=== PATIENT | male | born 1950 | race Caucasian/White ===

== ENCOUNTER 2017-05-23 07:34 | Day surgery (SDC) | payer OTHER ==
[2017-05-22 12:29] VITALS: BMI 34.8
[~2017-05-23 07:34] MED LIST: ACETAMINOPHEN 325 MG TABLET (FP) PO PRN; FLURBIPROFEN 0.03% OPHTH SOLN 2.5 ML BOTTLE OP SCH
[2017-05-23] MEDS ORDERED: CYCLOPENTOLATE HCL 1% OPHTH SOLN 2 ML BOTTLE ONE (07:56)
[2017-05-23] MEDS ORDERED: PHENYLEPHRINE 2.5% OPHTH SOLN 15 ML BOTTLE ONE (07:56)
[2017-05-23] MEDS ORDERED: CIPROFLOXACIN 0.3% EYE DROPS 5 ML BOTTLE ONE (07:56)
[2017-05-23] MEDS ORDERED: TROPICAMIDE 1% OPHTH SOLN 15 ML BOTTLE ONE (07:56)
[2017-05-23] MEDS: CIPROFLOXACIN HCL 0.3% OPHTH 2.5ML BOTTLE OP SCH ×3 (08:00→08:10)
[2017-05-23] MEDS: TROPICAMIDE 1% OPHTH SOLN 15 ML BOTTLE OP SCH ×3 (08:00→08:10)
[2017-05-23] MEDS: PHENYLEPHRINE 2.5% OPHTH SOLN 15 ML BOTTLE OP SCH ×3 (08:00→08:10)
[2017-05-23] MEDS: CYCLOPENTOLATE HCL 1% OPHTH SOLN 2 ML BOTTLE OP SCH ×3 (08:00→08:10)
[2017-05-23] MEDS ORDERED: LIDOCAINE HCL 2% JELLY (5 ML/TUBE) TP ONE (08:55)
[2017-05-23] MEDS ORDERED: MIDAZOLAM HCL 2 MG/2 ML SINGLE DOSE VIAL ONE (08:57)
[2017-05-23] MEDS ORDERED: POVIDONE-IODINE 5% OPHTHALMIC PREP 30 ML SOLUTION OS ONE (09:07)
[2017-05-23] MEDS ORDERED: LIDOCAINE HCL 1% PRESERVATIVE FREE - 30ML VIAL IO ONE (09:15)
[2017-05-23] MEDS ORDERED: BSS (NA/CA/MG/K) BALANCED SALT SOLUTION OPHTH SOLN 15 ML BOTTLE OS ONE (09:15)
[2017-05-23] MEDS ORDERED: CHONDROITIN SU A/HYALUR SOD 1 KIT IO ONE (09:15)
[2017-05-23] MEDS ORDERED: EPINEPHrine/PF 1 MG/1 ML (1:1,000) AMPULE IO ONE (09:21)
--- NOTE | 2017-05-23 10:28 | SPEC ---
DATE OF OPERATION: DATE OF DICTATION: 05/23/2017 OPERATION: Phacoemulsification with posterior chamber intraocular lens implantation, left eye. Lens used [id number], 20.0 diopter power, serial no. [id number]. PREOPERATIVE DIAGNOSIS: Cataract, left eye. POSTOPERATIVE DIAGNOSIS: Cataract, left eye. SURGEON: Nilam Sargent M.D. ANESTHESIA: Topical MAC. COMPLICATIONS: None. PROCEDURE: The patient was brought to the operating room and correctly identified along with the operative site and the correct intraocular lens power. The patient was then prepped and draped in the usual sterile fashion including 5% Betadine solution in the conjunctival sac and an eyelid drape. An eyelid speculum was then placed in the eye. A paracentesis port was created and approximately 0.5 mL of preservative-free lidocaine was then injected into the eye. Viscoelastic was then injected to inflate the anterior chamber. A temporal clear corneal wound was created. A continuous circular capsulorrhexis was performed. The nucleus was then hydrodissected with BSS and removed with phacoemulsification. The remaining cortical material was irrigated and aspirated. Viscoelastic was injected to inflate the capsular bag and the intraocular lens was then implanted into the capsular bag. The remaining Viscoelastic was irrigated and aspirated from the eye. The IOL was noted to be well centered and completely covered by the anterior capsulorrhexis. Topical vancomycin was placed and the eye patched and shielded. All wounds were tested and found to be watertight. No suture was placed. The eye was then shielded. The patient was then discharged from the operating room in stable condition. NILAM SARGENT M.D. [id number]
[2017-05-23 10:34] VITALS: BP 101/56; PULSE 77; TEMP 98.6
== END 2017-05-23 11:00 | disposition home or self-care (01) ==
LOC: JASU-SURG 07:34
PROVIDERS: ATTEND Ophthalmology
PROC: 08RK3JZ Replacement of Left Lens with Synthetic Substitute, Percutaneous Approach (ICD-10-PCS; principal; 2017-05-23 09:00)
DX: H26.9 Unspecified cataract (principal)

== ENCOUNTER 2017-06-06 07:57 | Day surgery (SDC) | payer OTHER ==
[2017-06-01 17:32] VITALS: BMI 34.8
[~2017-06-06 07:57] MED LIST changes: -FLURBIPROFEN 0.03% OPHTH SOLN 2.5 ML BOTTLE OP SCH
[2017-06-06] MEDS ORDERED: FLURBIPROFEN 0.03% OPHTH SOLN 2.5 ML BOTTLE OP SCH (08:00)
[2017-06-06] MEDS ORDERED: CIPROFLOXACIN 0.3% EYE DROPS 5 ML BOTTLE ONE (08:09)
[2017-06-06] MEDS: CYCLOPENTOLATE HCL 1% OPHTH SOLN 2 ML BOTTLE OP SCH ×3 (08:10→08:30)
[2017-06-06] MEDS: TROPICAMIDE 1% OPHTH SOLN 15 ML BOTTLE OP SCH ×3 (08:10→08:30)
[2017-06-06] MEDS: PHENYLEPHRINE 2.5% OPHTH SOLN 15 ML BOTTLE OP SCH ×3 (08:10→08:30)
[2017-06-06] MEDS: CIPROFLOXACIN HCL 0.3% OPHTH 2.5ML BOTTLE OP SCH ×3 (08:10→08:30)
[2017-06-06 08:29] VITALS: TEMP 98
[2017-06-06] MEDS ORDERED: BUPIVACAINE HCL/PF 0.75% 10 ML VIAL RB ONE (09:13)
[2017-06-06] MEDS ORDERED: LIDOCAINE HCL/PF 2% SDV 5ML VIAL INF ONE (09:13)
[2017-06-06] MEDS ORDERED: POVIDONE-IODINE 5% OPHTHALMIC PREP 30 ML SOLUTION OD ONE (09:14)
[2017-06-06] MEDS ORDERED: BSS (NA/CA/MG/K) BALANCED SALT SOLUTION OPHTH SOLN 15 ML BOTTLE OD ONE (09:23)
[2017-06-06] MEDS ORDERED: LIDOCAINE HCL 1% PRESERVATIVE FREE - 30ML VIAL IO ONE (09:23)
[2017-06-06] MEDS ORDERED: CHONDROITIN SU A/HYALUR SOD 1 KIT IO ONE (09:23)
[2017-06-06] MEDS ORDERED: EPINEPHrine/PF 1 MG/1 ML (1:1,000) AMPULE IO ONE (09:26)
[2017-06-06 10:50] VITALS: BP 102/60; PULSE 78
--- NOTE | 2017-06-06 10:53 | SPEC ---
DATE OF OPERATION: OPERATION: Phacoemulsification of right cataract with posterior chamber intraocular lens implantation. Lens used [id number], 20.5 Diopter, Serial No. [id number]. PREOPERATIVE DIAGNOSIS: Cataract right eye. POSTOPERATIVE DIAGNOSIS: Cataract right eye. SURGEON: Matteo Teixeira M.D. ANESTHESIA: Peribulbar/Modified [place]/MAC. COMPLICATIONS: None. PROCEDURE: The patient was brought to the operating room and correctly identified along with the operative site and a correct intraocular lens ulloa. The patient was then given a peribulbar block under sedation with 5 mL of a 1:1 mixture of 2% Lidocaine and 0.5% Bupivacaine. Two to 3 mL of the same mixture was given as a modified [place]int block. The eye was then prepped and draped in the usual sterile fashion including 5% Betadine solution in the conjunctival sac and an eyelid drape. An eyelid speculum was then placed into the eye. A paracentesis port was created. Viscoelastic was injected to inflate the anterior chamber. A temporal clear corneal wound was created. A continuous circular capsulorrhexis was performed. The nucleus was then hydro-dissected and removed phacoemulsification via the [id number] approach. The remaining cortical material was irrigated and aspirated from the eye. Viscoelastic was injected to inflate the capsular bag. The lens was injected into the capsular bag. Viscoelastic was then irrigated and aspirated from the eye. The intraocular lens was noted to be well centered and covered by the anterior capsular border. All wounds were found to be watertight. Topical Vancomycin was given. The eye patch and shield were placed. The patient was discharged from the operating room in stable condition. Geri BARAKAT/[id number]
== END 2017-06-06 10:50 | disposition home or self-care (01) ==
LOC: JASU-SURG 07:57
PROVIDERS: ATTEND Ophthalmology
PROC: 08RK3JZ Replacement of Left Lens with Synthetic Substitute, Percutaneous Approach (ICD-10-PCS; principal; 2017-06-06 09:00)
DX: H26.9 Unspecified cataract (principal)

== ENCOUNTER 2020-02-16 15:31 | Inpatient (IN) | payer OTHER ==
--- NOTE | 2020-02-16 16:41 | PDOC ---
History of Present Illness - General Chief Complaint: Lightheaded Stated Complaint: FALL Time Seen by Provider: 02/16/20 15:43 History Source: Patient - History of Present Illness Initial Comments: 02/16/20 17:01 69M w/hx HTN, HLD, prior CVA w/residual R weakness p/w fall at home. He reports "slipping and falling" and landing onto his R face. He does not recall the events before or after the fall. He reports calling himself a cab to bring him to the ER, but does not remember how he stood himself back up after the fall. History limited by mental status. He reports living by himself. He is unsure if he became lightheaded before the fall. He endorses pain on his R face, denies any new numbness, tingling, chest pain, sob. NIH Stroke Scale - Last Known Well Date/Time & Onset Date Last Known Well: 02/15/20 Time Last Known Well: 12:00 - Initial Evaluation Level of consciousness: Not alert, but arousable with minimal stimulation Ask patient the month and their age: Answers one correctly Ask patient to open & close eyes; make fist and let go: Obeys both correctly Best gaze (horizontal eye movement): Normal Visual field testing: No visual field loss Facial paresis (Show teeth/raise eyebrows/close eyes tight): Minor paralysis (flattened nasolabial fold, asymmetry on smiling) Motor Function: Left Arm: Normal Motor Function: Right Arm: Normal (extends arm 90 (or 45) degrees for 10 secon ds without drift Motor Function: Left Leg: Normal (extends leg 30 degrees for 5 seconds without drift) Motor Function: Right Leg: Drift Limb Ataxia: No ataxia Sensory(Use pinprick test arms,legs,trunk,face/side to side): Normal Best language (Describe picture, name items, read sentences): No Aphasia Dysarthria (read several words): Normal articulation Extinction and Inattention: Inattention or extinction bilaterally to one of the sensory modalities - Total Score NIH Stroke Scale Score: 5 Past History - Medical History Allergies/Adverse Reactions: Allergies Allergy/AdvReac Type Severity Reaction Status Date / Time No Known Allergies Allergy Verified 06/06/17 08:19 Home Medications: Ambulatory Orders Ascorbate Calcium [Vitamin C] 500 mg PO DAILY 05/22/17 Aspirin [ASA -] 81 mg PO DAILY 05/22/17 Atorvastatin Ca [Lipitor] 40 mg PO HS 05/22/17 Ergocalciferol [Vitamin D2] 50,000 unit PO WEEKLY 05/22/17 Escitalopram Oxalate [Lexapro -] 20 mg PO DAILY 05/22/17 Folic Acid 0.4 mg PO DAILY 05/22/17 Gabapentin 300 mg PO TID 05/22/17 Insulin Degludec [Tresiba Flextouch U-100] 60 unit SQ DAILY 05/22/17 Lisinopril [Prinivil] 20 mg PO DAILY 05/22/17 Pantoprazole Sodium [Protonix -] 20 mg PO DAILY 05/22/17 Sitagliptin Phosphate [Januvia] 100 mg PO DAILY 05/22/17 traZODone HCL [Trazodone HCl] 50 mg PO HS 05/22/17 Anemia: No Asthma: Yes Cancer: No Cardiac Disorders: No CVA: No COPD: No CHF: No Dementia: No Diabetes: Yes GI Disorders: No Disorders: No HTN: Yes Hypercholesterolemia: Yes Liver Disease: No Seizures: No Thyroid Disease: No Other medical history: vertigo - Surgical History Orthopedic Surgery: Yes (RTK REPLACEMENT 11/2016) - Psycho-Social/Smoking History Smoking History: Former smoker Have you smoked in the past 12 months: No Information on smoking cessation initiated: No - Substance Abuse Hx (Audit-C & DAST Scrn) How often the patient has a drink containing alcohol: Never Score: In Men: 4 or > Positive; In Women: 3 or > Positive: 0 Screen Result (Pos requires Nsg. Audit-10AR): Negative In the last yr the pt used illegal drug/Rx for NonMed reason: No Score: Yes response is considered Positive: 0 Screen Result (Positive result requires Nsg. DAST-10): Negative Review of Systems - Review of Systems Able to Perform ROS?: Yes (Limited by mental status) Comments:: 02/16/20 18:02 GENERAL/CONSTITUTIONAL: Weakness. No fever or chills. HEAD, EYES, EARS, NOSE AND THROAT: No change in vision. No ear pain or discharge. No sore throat. CARDIOVASCULAR: No chest pain or shortness of breath RESPIRATORY: No cough, wheezing, or hemoptysis. GASTROINTESTINAL: No nausea, vomiting, diarrhea or constipation. GENITOURINARY: No dysuria, frequency, or change in urination. MUSCULOSKELETAL: Neck pain. No other joint or muscle swelling or pain. No back pain. SKIN: No rash NEUROLOGIC: Loss of consciousness. No headache, vertigo, or change in strength/sensation. ENDOCRINE: No increased thirst. No abnormal weight change HEMATOLOGIC/LYMPHATIC: No anemia, easy bleeding, or history of blood clots. ALLERGIC/IMMUNOLOGIC: No hives or skin allergy. *Physical Exam - Vital Signs Last Vital Signs Temp Pulse Resp BP Pulse Ox 99.5 F 65 18 147/49 L 98 02/16/20 15:39 02/16/20 15:39 02/16/20 15:39 02/16/20 15:39 02/16/20 15:39 - Physical Exam 02/16/20 17:12 GENERAL: Oriented to location. Disoriented to time, person, situation. Awake, in no acute distress HEAD: No signs of trauma, normocephalic, atraumatic EYES: PERRLA, EOMI, sclera anicteric, conjunctiva clear ENT: Auricles normal inspection, hearing grossly normal, nares patent, oropharynx clear without exudates. Moist mucosa NECK: Midline cervical, thoracic, and lumbar tenderness. Normal ROM, supple, no lymphadenopathy, JVD, or masses LUNGS: No distress, speaks full sentences, clear to auscultation bilaterally HEART: Regular rate and rhythm, normal S1 and S2, no murmurs, rubs or gallops, peripheral pulses normal and equal bilaterally. ABDOMEN: Soft, nontender, normoactive bowel sounds. No guarding, no rebound. No masses EXTREMITIES : Normal inspection, Normal range of motion, no edema. No clubbing or cyanosis NEUROLOGICAL: 4/5 strength in RUE, RLE. 5/5 strength in LLE, LUE. Diminished attentiveness to R side, with delayed R sided finger to nose. Cranial nerves II through XII grossly intact. Slow speech. SKIN: Warm, Dry, normal turgor, no rashes or lesions noted ED Treatment Course - LABORATORY CBC & Chemistry Diagram: 02/16/20 17:05 02/16/20 16:11 Medical Decision Making - Medical Decision Making 02/16/20 17:16 69M w/hx HTN, HLD p/w unwitnessed fall at home with syncope, disoriented with unclear baseline, and R sided weakness. Ddx CVA, recrudescence syndrome, arrhythmia, electrolyte derangement. Plan: CT head w/o contrast CT cervical, thoracic, lumbar spines w/o contrast Cervical collar placement given midline spinal tenderness CBC CMP Cardiac profile PT/INR, APTT Type and Screen EKG CXR Dispo: Admit 02/16/20 18:08 CT Cervical/thoracic/lumbar spine negative for acute fracture or other acute process. Lung field notable for small effusion vs consolidation. Plan for cef azithro for pneumonia coverage Discharge - Discharge Information Problems reviewed: Yes Clinical Impression/Diagnosis: Syncope Qualifiers: Syncope type: unspecified Qualified Code(s): R55 - Syncope and collapse Condition: Stable - Admission Yes - Follow up/Referral Referrals: Kati Colvin [Primary Care Provider] - - Patient Discharge Instructions - Post Discharge Activity
[2020-02-16 16:57] LABS: INR 0.89 (0.83-1.09); PROTHROMBIN TIME (PATIENT) 10.5 SEC (9.7-13.0)
[2020-02-16 17:00] LABS: ACTIVATED PTT 22.2 SECONDS (25.2-36.5)
[2020-02-16 17:26] LABS: BASO % 1.1 % (0-2.0); EOS % 1.9 % (0-4.5); HEMATOCRIT 36.9 % (35.4-49); HEMOGLOBIN 11.7 GM/dL (11.7-16.9); LYMPH % 18.1 % (8-40); MCH 24.3 pg (25.7-33.7); MCHC 31.7 g/dl (32.0-35.9); MEAN CELL VOLUME 76.6 fl (80-96); MEAN PLT VOLUME 10.6 fl (7.5-11.1); MONO % 6.3 % (3.8-10.2); NEUT % 72.6 % (42.8-82.8); PLATELET COUNT 208 K/MM3 (134-434); RBC 4.82 M/mm3 (4.00-5.60); RDW 18.2 % (11.9-15.9); WHITE BLOOD COUNT 8.2 K/mm3 (4.0-10.0)
[2020-02-16 17:27] LABS: ALBUMIN 3.1 g/dl (3.4-5.0); BILIRUBIN,TOTAL 0.4 mg/dL (0.2-1); BLOOD UREA NITROGEN 17.6 mg/dL (7-18); CALCIUM 8.7 mg/dL (8.5-10.1); CREATININE 1.2 mg/dL (0.55-1.3); POTASSIUM 4.5 mmol/L (3.5-5.1); TOT PROT 6.8 g/dl (6.4-8.2)
--- NOTE | 2020-02-16 17:29 | PDOC ---
Attending Attestation - Resident Resident Name: Tyron French - ED Attending Attestation I have performed the following: I have examined & evaluated the patient, The case was reviewed & discussed with the resident, I agree w/resident's findings & plan, Exceptions are as noted - HPI HPI: 02/16/20 17:25 69 M with h/o HTN, HLD, CVA presenting with fall. Pt states that he slipped and fell, landing onto his R face. Does not recall if he lost consciousness. Denies CP/SOB/palpitations. Pt is AnOx2 in ED, unable to provide thorough history. - Physicial Exam PE: 02/16/20 17:28 See resident exam - Medical Decision Making 02/16/20 17:28 69 M with AMS and fall/syncope, found to be ataxic on exam. Will evaluate for CVA. Will attempt to obtain collateral on pt's baseline mental status. - Labs - CT head - CXR, UA Discharge - Discharge Information Problems reviewed: Yes Clinical Impression/Diagnosis: Syncope Qualifiers: Syncope type: unspecified Qualified Code(s): R55 - Syncope and collapse Condition: Stable - Follow up/Referral - Patient Discharge Instructions - Post Discharge Activity
[2020-02-16] MEDS ORDERED: CEFTRIAXONE 1,000 MG in DEXTROSE 5%-WATER - 50 ML IVPB ONE (18:09)
[2020-02-16] MEDS ORDERED: AZITHROMYCIN IVPB 500 MG in DEXTROSE 5%-WATER - 250 ML IVPB ONE (18:09)
[2020-02-16] MEDS ORDERED: AZITHROMYCIN IVPB 500 MG/250 ML BAG IVPB ONE (18:42)
[2020-02-16] MEDS ORDERED: CEFTRIAXONE 1 GM/50 ML BAG ONE (18:42)
[2020-02-17 01:17] VITALS: BMI 27.6
[2020-02-17 01:58] LABS: EPI CELLS 10 /uL (0-25.1); HYALINE CASTS 4 /uL (0-3.1); URINE APPEARANCE CLEAR; URINE BACTERIA 48 /uL (0-1359); URINE BILIRUBIN NEGATIVE (NEGATIVE); URINE COLOR YELLOW; URINE GLUCOSE (UA) 3+ (NEGATIVE); URINE KETONE NEGATIVE (NEGATIVE); URINE LEUK ESTERASE NEGATIVE (NEGATIVE); URINE NITRITE NEGATIVE (NEGATIVE); URINE PROTEIN 3+ (NEGATIVE); URINE RBC 9 /uL (0-23.9); URINE UROBILINOGEN 0.2 mg/dL (0.2-1.0)
[2020-02-17 02:12] LABS: URINE WBC 60 /uL (0-25.8)
--- NOTE | 2020-02-17 05:38 | HP ---
CHIEF COMPLAINT: s/p Fall, Presyncope PCP: Dr Colvin HISTORY OF PRESENT ILLNESS: 69M w/hx HTN, HLD, prior CVA w/residual R weakness p/w fall at home. Per ED records: He reports "slipping and falling" and landing onto his R face. He does not recall the events before or after the fall. He reports calling himself a cab to bring him to the ER, but does not remember how he stood himself back up after the fall. History limited by mental status. He reports living by himself. He is unsure if he became lightheaded before the fall. He endorses pain on his R face, denies any new numbness, tingling, chest pain, sob. ER course was notable for: (1) Head CT-neg acute intracranial pathology. small chronic right frontoparietal periventricular infarct punctate chronic right basal ganglia infarct (2) C-Spine CT- neg fx (3) Thoracic CT- neg fx (4) Lumbar CT- neg fx (5) Troponin 0.02 (6) Glucose 294 Recent Travel: unknown PAST MEDICAL HISTORY: See HPI PAST SURGICAL HISTORY: Right Total Knee Replacement 11/2016 Social History: Smoking: Former (per medical record) Alcohol: Unknown Drugs: Unknown Allergies No Known Allergies Allergy (Verified 06/06/17 08:19) HOME MEDICATIONS: Home Medications Medication Instructions Recorded Ascorbate Calcium [Vitamin C] 500 mg PO DAILY 05/22/17 Aspirin [ASA -] 81 mg PO DAILY 05/22/17 Atorvastatin Ca [Lipitor] 40 mg PO HS 05/22/17 Ergocalciferol [Vitamin D2] 50,000 unit PO WEEKLY 05/22/17 Escitalopram Oxalate [Lexapro -] 20 mg PO DAILY 05/22/17 Folic Acid 0.4 mg PO DAILY 05/22/17 Gabapentin 300 mg PO TID 05/22/17 Insulin Degludec [Tresiba 60 unit SQ DAILY 05/22/17 Flextouch U-100] Lisinopril [Prinivil] 20 mg PO DAILY 05/22/17 Pantoprazole Sodium [Protonix -] 20 mg PO DAILY 05/22/17 Sitagliptin Phosphate [Januvia] 100 mg PO DAILY 05/22/17 traZODone HCL [Trazodone HCl] 50 mg PO HS 05/22/17 REVIEW OF SYSTEMS Unable to Obtain- Clinical Condition CONSTITUTIONAL: Absent: fever, chills, diaphoresis, generalized weakness, malaise, loss of appetite, weight change HEENT: Absent: rhinorrhea, nasal congestion, throat pain, throat swelling, difficulty swallowing, mouth swelling, ear pain, eye pain, visual changes CARDIOVASCULAR: Absent: chest pain, syncope, palpitations, irregular heart rate, lightheadedness, peripheral edema RESPIRATORY: Absent: cough, shortness of breath, dyspnea with exertion, orthopnea, wheezing, stridor, hemoptysis GASTROINTESTINAL: Absent: abdominal pain, abdominal distension, nausea, vomiting, diarrhea, constipation, melena, hematochezia GENITOURINARY: Absent: dysuria, frequency, urgency, hesitancy, hematuria, flank pain, genital pain MUSCULOSKELETAL: Absent: myalgia, arthralgia, joint swelling, back pain, neck pain SKIN: Absent: rash, itching, pallor HEMATOLOGIC/IMMUNOLOGIC: Absent: easy bleeding, easy bruising, lymphadenopathy, frequent infections ENDOCRINE: Absent: unexplained weight gain, unexplained weight loss, heat intolerance, cold intolerance NEUROLOGIC: Absent: headache, focal weakness or paresthesias, dizziness, unsteady gait, seizure, mental status changes, bladder or bowel incontinence PSYCHIATRIC: Absent: anxiety, depression, suicidal or homicidal ideation, hallucinations. PHYSICAL EXAMINATION Vital Signs - 24 hr 02/16/20 02/16/20 02/16/20 15:39 16:00 19:35 Temperature 99.5 F 98.1 F 99.4 F Pulse Rate 65 Pulse Rate [ 95 H Right Radial] Respiratory 18 18 18 Rate Blood Pressure 147/49 L Blood Pressure 142/82 125/78 [Left Arm] O2 Sat by Pulse 98 97 98 Oximetry (%) 02/16/20 02/16/20 02/16/20 23:01 23:30 23:35 Temperature 99.9 F H Pulse Rate 85 85 Pulse Rate [ 96 H Right Radial] Respiratory 18 20 20 Rate Blood Pressure 129/72 129/72 Blood Pressure 122/82 [Left Arm] O2 Sat by Pulse 98 Oximetry (%) 02/17/20 01:13 Temperature 98.9 F Pulse Rate 81 Pulse Rate [ Right Radial] Respiratory 20 Rate Blood Pressure 127/73 Blood Pressure [Left Arm] O2 Sat by Pulse Oximetry (%) GENERAL: Awake, and confused, in no acute distress. HEAD: Normal with no signs of trauma. EYES: Pupils equal, round and reactive to light, sclera anicteric, conjunctiva clear. No lid lag. unable to assess extraocular movements EARS, NOSE, THROAT: Ears normal, nares patent, oropharynx clear without exudates. Moist mucous membranes. NECK: Normal range of motion, supple without lymphadenopathy, JVD, or masses. LUNGS: Breath sounds equal, clear to auscultation bilaterally. No wheezes, and no crackles. No accessory muscle use. HEART: Regular rate and rhythm, normal S1 and S2 without murmur, rub or gallop. ABDOMEN: Soft, nontender, not distended, normoactive bowel sounds, no guarding, no rebound, no masses. No hepatomegaly or splenomegaly. MUSCULOSKELETAL: Normal range of motion at all joints. No bony deformities or tenderness. No CVA tenderness. UPPER EXTREMITIES: 2+ pulses, warm, well-perfused. No cyanosis. No clubbing. No peripheral edema. LOWER EXTREMITIES: 2+ pulses, warm, well-perfused. No calf tenderness. No peripheral edema. NEUROLOGICAL: Cranial nerves II-XII intact. Normal speech. Gait not observed. PSYCHIATRIC: Cooperative. Limited eye contact. Appropriate mood with flat affect. SKIN: Warm, dry, normal turgor, no rashes or lesions noted, normal capillary refill. Laboratory Results - last 24 hr 02/16/20 02/16/20 02/16/20 16:11 16:11 16:11 WBC Cancelled Corrected WBC (auto) Cancelled RBC Cancelled Hgb Cancelled Hct Cancelled MCV Cancelled MCH Cancelled MCHC Cancelled RDW Cancelled Plt Count Cancelled MPV Cancelled Absolute Neuts (auto) Cancelled Neutrophils % Cancelled Lymphocytes % Cancelled Monocytes % Cancelled Eosinophils % Cancelled Basophils % Cancelled Nucleated RBC % Cancelled Platelet Estimate Cancelled Platelet Comment Cancelled PT with INR 10.50 INR 0.89 PTT (Actin FS) 22.2 L Sodium 136 Potassium 4.5 Chloride 105 Carbon Dioxide 19 L Anion Gap 12 BUN 17.6 Creatinine 1.2 Est GFR (CKD-EPI)AfAm 70.58 Est GFR (CKD-EPI)NonAf 60.90 Random Glucose 294 H Calcium 8.7 Total Bilirubin 0.4 AST 29 ALT 22 Alkaline Phosphatase 150 H Creatine Kinase 92 Troponin I 0.02 Total Protein 6.8 Albumin 3.1 L Urine Color Urine Appearance Urine pH Ur Specific [place] Urine Protein Urine Glucose (UA) Urine Ketones Urine Blood Urine Nitrite Urine Bilirubin Urine Urobilinogen Ur Leukocyte Esterase Urine WBC (Auto) Urine RBC (Auto) Urine Casts (Auto) U Epithel Cells (Auto) Urine Bacteria (Auto) Blood Type Antibody Screen 02/16/20 02/16/20 02/16/20 16:11 17:05 23:55 WBC 8.2 Corrected WBC (auto) RBC 4.82 Hgb 11.7 Hct 36.9 MCV 76.6 L MCH 24.3 L D MCHC 31.7 L RDW 18.2 H Plt Count 208 MPV 10.6 Absolute Neuts (auto) 5.9 Neutrophils % 72.6 Lymphocytes % 18.1 Monocytes % 6.3 Eosinophils % 1.9 Basophils % 1.1 Nucleated RBC % 0 Platelet Estimate Platelet Comment PT with INR INR PTT (Actin FS) Sodium Potassium Chloride Carbon Dioxide Anion Gap BUN Creatinine Est GFR (CKD-EPI)AfAm Est GFR (CKD-EPI)NonAf Random Glucose Calcium Total Bilirubin AST ALT Alkaline Phosphatase Creatine Kinase 49 Troponin I 0.03 Total Protein Albumin Urine Color Urine Appearance Urine pH Ur Specific [place] Urine Protein Urine Glucose (UA) Urine Ketones Urine Blood Urine Nitrite Urine Bilirubin Urine Urobilinogen Ur Leukocyte Esterase Urine WBC (Auto) Urine RBC (Auto) Urine Casts (Auto) U Epithel Cells (Auto) Urine Bacteria (Auto) Blood Type O POSITIVE Antibody Screen Negative 02/17/20 01:42 WBC Corrected WBC (auto) RBC Hgb Hct MCV MCH MCHC RDW Plt Count MPV Absolute Neuts (auto) Neutrophils % Lymphocytes % Monocytes % Eosinophils % Basophils % Nucleated RBC % Platelet Estimate Platelet Comment PT with INR INR PTT (Actin FS) Sodium Potassium Chloride Carbon Dioxide Anion Gap BUN Creatinine Est GFR (CKD-EPI)AfAm Est GFR (CKD-EPI)NonAf Random Glucose Calcium Total Bilirubin AST ALT Alkaline Phosphatase Creatine Kinase Troponin I Total Protein Albumin Urine Color Yellow Urine Appearance Clear Urine pH 5.0 Ur Specific [place] 1.028 Urine Protein 3+ H Urine Glucose (UA) 3+ H Urine Ketones Negative Urine Blood Negative Urine Nitrite Negative Urine Bilirubin Negative Urine Urobilinogen 0.2 Ur Leukocyte Esterase Negative Urine WBC (Auto) 60 Urine RBC (Auto) 9 Urine Casts (Auto) 4 U Epithel Cells (Auto) 10 Urine Bacteria (Auto) 48 Blood Type Antibody Screen ASSESSMENT/PLAN: 69M w/hx HTN, HLD, prior CVA w/residual R weakness. Admitted to Telemetry for Syncope, Acute Metabolic Encephalopathy, Pneumonia for further evaluation of their emergent condition. Plan: See Problem List FEN PO fluids as tolerated Replete lytes prn Low Na, Diabetic Diet Dispo: Requires Inpatient Care Family Medical History Family History: Unable to Obtain Problem List - Problem (1) Syncope Assessment/Plan: Likely secondary to arrhythmia vs medication vs dehydration vs CVA Continue cardiac monitoring Head CT- no acute intracranial pathology. small chronic right frontoparietal periventricular infarct. punctate chronic right basal ganglia infarct Chest Xray image cardiomegaly, pleural thickening Appreciate Cardiology consult Carotid Doppler Echo Serial Enzymes Monitor CBC, CMP, Mg Fall Precautions Code(s): R55 - SYNCOPE AND COLLAPSE Qualifiers: Syncope type: unspecified Qualified Code(s): R55 - Syncope and collapse (2) Acute metabolic encephalopathy Assessment/Plan: Likely due to Arrhythmia vs Infection vs Medication vs Stroke Head CT reviewed Appreciate Neurology consult Neurochecks Monitor CBC, CMP Monitor vitals Fall Precautions Code(s): G93.41 - METABOLIC ENCEPHALOPATHY (3) Pneumonia Assessment/Plan: Will treat empirically for CAP CURB65 2, moderate risk Blood Cultures-pending Urine Culture-pending Urine legionella Chest Xray-increased pleural density in the RLL T Max 99.5 Ceftriaxone, Azithromycin given in ED, will continue Monitor CBC, CMP Monitor vitals Code(s): J18.9 - PNEUMONIA, UNSPECIFIED ORGANISM (4) Fall at home Assessment/Plan: CT Spine- neg fx Lumbar CT- neg fx Thoracic CT- neg fx Consider PT eval Consider Case Management for STR vs SNF, ?pt can care for himself Fall Precautions Monitor CBC, CMP Monitor vitals Code(s): W19.XXXA - UNSPECIFIED FALL, INITIAL ENCOUNTER; Y92.009 - UNSP PLACE IN UNSP NON-INSTITUT (PRIVATE) RESIDENCE PLACE (5) HTN (hypertension) Assessment/Plan: stable Monitor BP Unable to verify pts current meds tonight, will have day team verify with home pharmacy or [facility] in am Monitor renal function Code(s): I10 - ESSENTIAL (PRIMARY) HYPERTENSION (6) HLD (hyperlipidemia) Assessment/Plan: stable Continue Lipitor Monitor LFTs Code(s): E78.5 - HYPERLIPIDEMIA, UNSPECIFIED (7) History of cerebrovascular accident (CVA) with residual deficit Assessment/Plan: Head CT reviewed Continue Asa Fall Precautions Code(s): I69.30 - UNSPECIFIED SEQUELAE OF CEREBRAL INFARCTION (8) Encounter for laboratory testing for COVID-19 virus Assessment/Plan: 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 - New Patient This patient is new to me today: Yes Date on this admission: 02/16/20 - Critical Care Critical Care patient: No
[2020-02-17 06:21] LABS: BASO % 0.9 % (0-2.0); EOS % 4.7 % (0-4.5); HEMATOCRIT 33.5 % (35.4-49); HEMOGLOBIN 10.7 GM/dL (11.7-16.9); LYMPH % 24.7 % (8-40); MCH 24.2 pg (25.7-33.7); MEAN CELL VOLUME 75.6 fl (80-96); MEAN PLT VOLUME 10.4 fl (7.5-11.1); MONO % 7.8 % (3.8-10.2); NEUT % 61.9 % (42.8-82.8); PLATELET COUNT 197 K/MM3 (134-434); RBC 4.43 M/mm3 (4.00-5.60); RDW 18.5 % (11.9-15.9); WHITE BLOOD COUNT 5.6 K/mm3 (4.0-10.0)
[2020-02-17] MEDS: INSULIN SLIDING SCALE (NOVOLOG) 1 VIAL SQ SCH ×4 (06:22→21:28)
[2020-02-17 06:54] LABS: ALBUMIN 2.8 g/dl (3.4-5.0); BILIRUBIN,TOTAL 0.6 mg/dL (0.2-1); BLOOD UREA NITROGEN 16.8 mg/dL (7-18); MAGNESIUM 1.5 mg/dL (1.8-2.4); PHOSPHOROUS 3.4 mg/dL (2.5-4.9); POTASSIUM 3.8 mmol/L (3.5-5.1); TOT PROT 5.9 g/dl (6.4-8.2)
[2020-02-17] MEDS ORDERED: MAGNESIUM SULF 50% (8.12 MEQ/2 ML-1 GM VIAL) IVPB ONE (07:21)
[2020-02-17] MEDS ORDERED: cefTRIAXone SODIUM 1 GM VIAL ONE (08:21)
[2020-02-17] MEDS ORDERED: DEXTROSE 5%-WATER - 50 ML IVPB ONE (08:21)
--- NOTE | 2020-02-17 08:42 | CON.NEURO ---
Consult Consult Specialty:: [facility] Referred by:: ER - History of Present Illness History of Present Illness: this is a very pleasant 69-year-old right-handed man with history of coronary artery disease history of stroke with residual right-sided weakness presented to the hospital status post questionable nature fall. No seizure activity no chest pain or palpitation patient came into the emergency room no acute clinical pathology was noted patient was admitted to the telemetry for further treatment and management in the emergency room patient was clinically stable with residual mild right right-sided weakness. CAT scan of the head revealed no evidence of acute [employer] pathology patient had a CAT scan of the chest abdomen and pelvis patient had a carotid Doppler results were reviewed. Patient is not able to give me a good history regarding the prior cva - History Source History Provided By: Medical Record Limitations to Obtaining History: Clinical Condition - Alcohol/Substance Use Hx Alcohol Use: No - Smoking History Smoking history: Former smoker Have you smoked in the past 12 months: No Home Medications - Allergies Allergies/Adverse Reactions: Allergies Allergy/AdvReac Type Severity Reaction Status Date / Time No Known Allergies Allergy Verified 06/06/17 08:19 - Home Medications Home Medications: Ambulatory Orders Ascorbate Calcium [Vitamin C] 500 mg PO DAILY 05/22/17 Aspirin [ASA -] 81 mg PO DAILY 05/22/17 Atorvastatin Ca [Lipitor] 40 mg PO HS 05/22/17 Ergocalciferol [Vitamin D2] 50,000 unit PO WEEKLY 05/22/17 Escitalopram Oxalate [Lexapro -] 20 mg PO DAILY 05/22/17 Folic Acid 0.4 mg PO DAILY 05/22/17 Gabapentin 300 mg PO TID 05/22/17 Insulin Degludec [Tresiba Flextouch U-100] 60 unit SQ DAILY 05/22/17 Lisinopril [Prinivil] 20 mg PO DAILY 05/22/17 Pantoprazole Sodium [Protonix -] 20 mg PO DAILY 05/22/17 Sitagliptin Phosphate [Januvia] 100 mg PO DAILY 05/22/17 traZODone HCL [Trazodone HCl] 50 mg PO HS 05/22/17 Family Medical History Family History: Unable to Obtain Review of Systems - Review of Systems Neurological: reports: Dizziness, Headache, Incoordination, Numbness Physical Exam-Neuro Vital Signs: Vital Signs Temperature 98.8 F 02/17/20 06:12 Pulse Rate 86 06/23/20 06:12 Respiratory Rate 20 02/17/20 06:12 Blood Pressure 126/76 02/17/20 06:12 O2 Sat by Pulse Oximetry (%) 98 02/16/20 23:01 Constitutional: Yes: Well Nourished Neck: Yes: WNL Cardiovascular: Yes: WNL Labs: CBC, BMP 02/17/20 05:15 02/17/20 05:15 INR, PTT INR 0.89 (0.83-1.09) 02/16/20 16:11 - Neuro Exam Level Of Consciousness: Yes: Oriented to Person, Oriented to Place Eyes: Yes: PERRLA Speech: WNL Dominant Hand: Right Cranial Nerves II-XII Intact: Yes Gag: Present DTR's: 0 Left Brachioradialis, 1+ Left Bicep, 1+ Right Bicep, 1+ Left Tricep, 1+ Right Brachioradialis Response to light touch: Normal Response to pain prick: Normal Response to temperature: Normal Motor Strength: 3/5: Left Arm, Right Arm, Left Leg, Right Leg Gait: Deferred Imaging - Results Cat Scan: Image Reviewed Ultrasound: Image Reviewed Problem List - Problems (1) Acute metabolic encephalopathy Code(s): G93.41 - METABOLIC ENCEPHALOPATHY (2) Fall at home Code(s): W19.XXXA - UNSPECIFIED FALL, INITIAL ENCOUNTER; Y92.009 - UNSP PLACE IN [facility]SP [facility] (3) Syncope Code(s): R55 - SYNCOPE AND COLLAPSE Qualifiers: Syncope type: unspecified Qualified Code(s): R55 - Syncope and collapse Assessment/Plan 1. Fall precautions. 2. Holter monitor to detect any cardiac arrhythmia. 3. Continue the baby aspirin. 4. Check C-peptide and hemoglobin A1c. 5. Check orthostasis every shift. Tight blood sugar control. MRI of the brain with no contrast. Thank you very much for allowing me to be part of this patient neurological care. Terry Morocho M.D. [facility] [phone]
[2020-02-17] MEDS ORDERED: ASPIRIN 81 MG CHEWABLE TABLETS PO SCH (10:00)
[2020-02-17] MEDS ORDERED: AZITHROMYCIN IVPB 500 MG/250 ML BAG IVPB SCH (10:00)
[2020-02-17] MEDS: CEFTRIAXONE 1 GM in DEXTROSE 5%-WATER - 50 ML IVPB SCH (11:11)
--- NOTE | 2020-02-17 11:27 | EKG ---
Test Reason : Blood Pressure : / mmHG Vent. Rate : 107 BPM Atrial Rate : 107 BPM P-R Int : 162 ms QRS Dur : 086 ms QT Int : 328 ms P-R-T Axes : 024 008 -06 degrees QTc Int : 437 ms SINUS TACHYCARDIA WITH PREMATURE ATRIAL COMPLEXES OTHERWISE NORMAL ECG NO PREVIOUS ECGS AVAILABLE Confirmed by MD Lisandra, Devon ([id number]) on 02/17/2020 11:26:56 AM Referred By: Confirmed By:Devon Fry MD
[2020-02-17] MEDS ORDERED: INSULIN (NOVOLOG) ASPART 100 UNITS/ML 10ML VIAL ONE (12:07)
--- NOTE | 2020-02-17 14:35 | CON.CARD ---
Consult Consult Specialty:: Cardiology Referred by:: Diamond Jacinto Reason for Consultation:: Fall/?syncope - History of Present Illness Chief Complaint: fall History of Present Illness: 69 year old male poor historian pmhx obtained from chart as patient denied any medical problems. H/o htn, hld, and prior CVA with R residual weakness presenting after a fall. All patient can inform me is that he slipped and fell and hit his face. Denies any LOC but cannot describe anything else about event. Denies any chest pain, sob, or palpitations. Says he lives alone. (1) Head CT-neg acute intracranial pathology. small chronic right frontoparietal periventricular infarct punctate chronic right basal ganglia infarct (2) C-Spine CT- neg fx (3) Thoracic CT- neg fx (4) Lumbar CT- neg fx CE's negative x3 A1C 11 EKG: sinus tachycardia at 107 with pac's, no acute ischemic changes. - History Source History Provided By: Patient, Medical Record - Alcohol/Substance Use Hx Alcohol Use: No - Smoking History Smoking history: Former smoker Have you smoked in the past 12 months: No Home Medications - Allergies Allergies/Adverse Reactions: Allergies Allergy/AdvReac Type Severity Reaction Status Date / Time No Known Allergies Allergy Verified 06/06/17 08:19 - Home Medications Home Medications: Ambulatory Orders Ascorbate Calcium [Vitamin C] 500 mg PO DAILY 05/22/17 Aspirin [ASA -] 81 mg PO DAILY 05/22/17 Atorvastatin Ca [Lipitor] 40 mg PO HS 05/22/17 Ergocalciferol [Vitamin D2] 50,000 unit PO WEEKLY 05/22/17 Escitalopram Oxalate [Lexapro -] 20 mg PO DAILY 05/22/17 Folic Acid 0.4 mg PO DAILY 05/22/17 Gabapentin 300 mg PO TID 05/22/17 Insulin Degludec [Tresiba Flextouch U-100] 60 unit SQ DAILY 05/22/17 Lisinopril [Prinivil] 20 mg PO DAILY 05/22/17 Pantoprazole Sodium [Protonix -] 20 mg PO DAILY 05/22/17 Sitagliptin Phosphate [Januvia] 100 mg PO DAILY 05/22/17 traZODone HCL [Trazodone HCl] 50 mg PO HS 05/22/17 Vital Signs: Vital Signs Temperature 97.9 F 02/17/20 10:00 Pulse Rate 74 02/17/20 10:00 Respiratory Rate 20 02/17/20 10:00 Blood Pressure 119/67 02/17/20 10:00 O2 Sat by Pulse Oximetry (%) 95 02/17/20 09:00 Constitutional: Yes: No Distress Neck: Yes: Supple Respiratory: Yes: CTA Bilaterally Gastrointestinal: Yes: Soft Cardiovascular: Yes: Regular Rate and Rhythm JVD: No Carotid Bruit: No PMI: Non-Displaced Heart Sounds: Yes: S1, S2 Murmur: No: Systolic Murmur Edema: No - Other Data Labs, Other Data: CBC, BMP 02/17/20 05:15 02/17/20 05:15 INR, PTT INR 0.89 (0.83-1.09) 02/16/20 16:11 Troponin, BNP 02/16/20 02/16/20 02/17/20 16:11 23:55 05:15 Troponin I 0.02 0.03 0.02 Troponin, BNP 02/16/20 02/16/20 02/17/20 16:11 23:55 05:15 Troponin I 0.02 0.03 0.02 Imaging - Results Chest X-ray: Report Reviewed EKG: Image Reviewed Problem List - Problems (1) Acute metabolic encephalopathy Code(s): G93.41 - METABOLIC ENCEPHALOPATHY (2) Syncope Code(s): R55 - SYNCOPE AND COLLAPSE Qualifiers: Syncope type: unspecified Qualified Code(s): R55 - Syncope and collapse Assessment/Plan 69 year old male poor historian pmhx obtained from chart as patient denied any medical problems. H/o htn, hld, and prior CVA with R residual weakness presenting after a fall. All patient can inform me is that he slipped and fell and hit his face. Denies any LOC but cannot describe anything else about event. Denies any chest pain, sob, or palpitations. Says he lives alone. (1) Head CT-neg acute intracranial pathology. small chronic right frontoparietal periventricular infarct punctate chronic right basal ganglia infarct (2) C-Spine CT- neg fx (3) Thoracic CT- neg fx (4) Lumbar CT- neg fx CE's negative x3 A1C 11 EKG: sinus tachycardia at 107 with pac's, no acute ischemic changes. 1) Fall/confusion -f/u neurology recs and if any need for brain MRI -Carotid's no stenosis Abx for possible pna as per primary team. F/u cultures. No electrolyte issue. A1C is 11 which appears is a new diagnosis which may contribute to clinical status. Continue aspirin Hold statin given bump in ast/alt Covid pending Tele with few episodes of svt overnight. Will monitor bp and if tolerates will consider low dose metoprolol Plan for echocardiogram tomorrow
--- NOTE | 2020-02-17 14:42 | PN ---
Physical Exam: SUBJECTIVE: Patient seen and examined. He reports headache and dizziness. He denies n/v. OBJECTIVE: Vital Signs Period Temp Pulse Resp BP Sys/Christian Pulse Ox Last 24 Hr 97.9 F-99.9 F 65-96 18-20 119-147/49-82 95-98 GENERAL: The patient is awake, alert, in no acute distress. HEAD: Normal with no signs of trauma. EYES: PERRL, extraocular movements intact, sclera anicteric, conjunctiva clear. ENT: Ears normal, nares patent, moist mucous membranes. NECK: Trachea midline. LUNGS: Clear to auscultation bilaterally, no wheezes, no crackles. HEART: Regular rate and rhythm, no murmur. ABDOMEN: Soft, LUQ tender to palpation, negative harris's sign, nondistended, normoactive bowel sounds. EXTREMITIES: Warm, well-perfused, no edema. Proximal muscle atrophy. NEUROLOGICAL: Cranial nerves II through XII grossly intact. Normal speech. PSYCH: Normal mood, normal affect. SKIN: Warm, dry, normal turgor. Laboratory Results - last 24 hr 02/16/20 02/16/20 02/16/20 16:11 16:11 16:11 WBC Cancelled Corrected WBC (auto) Cancelled RBC Cancelled Hgb Cancelled Hct Cancelled MCV Cancelled MCH Cancelled MCHC Cancelled RDW Cancelled Plt Count Cancelled MPV Cancelled Absolute Neuts (auto) Cancelled Neutrophils % Cancelled Lymphocytes % Cancelled Monocytes % Cancelled Eosinophils % Cancelled Basophils % Cancelled Nucleated RBC % Cancelled Platelet Estimate Cancelled Platelet Comment Cancelled PT with INR 10.50 INR 0.89 PTT (Actin FS) 22.2 L Sodium 136 Potassium 4.5 Chloride 105 Carbon Dioxide 19 L Anion Gap 12 BUN 17.6 Creatinine 1.2 Est GFR (CKD-EPI)AfAm 70.58 Est GFR (CKD-EPI)NonAf 60.90 POC Glucometer Random Glucose 294 H Hemoglobin A1c % Calcium 8.7 Phosphorus Magnesium Total Bilirubin 0.4 AST 29 ALT 22 Alkaline Phosphatase 150 H Creatine Kinase 92 Troponin I 0.02 Total Protein 6.8 Albumin 3.1 L Triglycerides Cholesterol Total LDL Cholesterol HDL Cholesterol TSH Urine Color Urine Appearance Urine pH Ur Specific [place] Urine Protein Urine Glucose (UA) Urine Ketones Urine Blood Urine Nitrite Urine Bilirubin Urine Urobilinogen Ur Leukocyte Esterase Urine WBC (Auto) Urine RBC (Auto) Urine Casts (Auto) U Epithel Cells (Auto) Urine Bacteria (Auto) Blood Type Antibody Screen 02/16/20 02/16/20 02/16/20 16:11 17:05 23:55 WBC 8.2 Corrected WBC (auto) RBC 4.82 Hgb 11.7 Hct 36.9 MCV 76.6 L MCH 24.3 L D MCHC 31.7 L RDW 18.2 H Plt Count 208 MPV 10.6 Absolute Neuts (auto) 5.9 Neutrophils % 72.6 Lymphocytes % 18.1 Monocytes % 6.3 Eosinophils % 1.9 Basophils % 1.1 Nucleated RBC % 0 Platelet Estimate Platelet Comment PT with INR INR PTT (Actin FS) Sodium Potassium Chloride Carbon Dioxide Anion Gap BUN Creatinine Est GFR (CKD-EPI)AfAm Est GFR (CKD-EPI)NonAf POC Glucometer Random Glucose Hemoglobin A1c % Calcium Phosphorus Magnesium Total Bilirubin AST ALT Alkaline Phosphatase Creatine Kinase 49 Troponin I 0.03 Total Protein Albumin Triglycerides Cholesterol Total LDL Cholesterol HDL Cholesterol TSH Urine Color Urine Appearance Urine pH Ur Specific [place] Urine Protein Urine Glucose (UA) Urine Ketones Urine Blood Urine Nitrite Urine Bilirubin Urine Urobilinogen Ur Leukocyte Esterase Urine WBC (Auto) Urine RBC (Auto) Urine Casts (Auto) U Epithel Cells (Auto) Urine Bacteria (Auto) Blood Type O POSITIVE Antibody Screen Negative 02/17/20 02/17/20 02/17/20 01:42 05:15 05:15 WBC 5.6 Corrected WBC (auto) RBC 4.43 Hgb 10.7 L Hct 33.5 L MCV 75.6 L MCH 24.2 L MCHC 32.0 RDW 18.5 H Plt Count 197 MPV 10.4 Absolute Neuts (auto) 3.5 Neutrophils % 61.9 Lymphocytes % 24.7 D Monocytes % 7.8 Eosinophils % 4.7 H D Basophils % 0.9 Nucleated RBC % 0 Platelet Estimate Platelet Comment PT with INR INR PTT (Actin FS) Sodium 138 Potassium 3.8 Chloride 106 Carbon Dioxide 21 Anion Gap 11 BUN 16.8 Creatinine 1.0 Est GFR (CKD-EPI)AfAm 87.99 Est GFR (CKD-EPI)NonAf 75.92 POC Glucometer Random Glucose 191 H Hemoglobin A1c % Calcium 8.0 L Phosphorus 3.4 Magnesium 1.5 L Total Bilirubin 0.6 AST 494 H ALT 342 H Alkaline Phosphatase 273 H Creatine Kinase 40 Troponin I 0.02 Total Protein 5.9 L Albumin 2.8 L Triglycerides 123 Cholesterol 152 Total LDL Cholesterol 85 HDL Cholesterol 46 TSH 1.92 D Urine Color Yellow Urine Appearance Clear Urine pH 5.0 Ur Specific [place] 1.028 Urine Protein 3+ H Urine Glucose (UA) 3+ H Urine Ketones Negative Urine Blood Negative Urine Nitrite Negative Urine Bilirubin Negative Urine Urobilinogen 0.2 Ur Leukocyte Esterase Negative Urine WBC (Auto) 60 Urine RBC (Auto) 9 Urine Casts (Auto) 4 U Epithel Cells (Auto) 10 Urine Bacteria (Auto) 48 Blood Type Antibody Screen 02/17/20 02/17/20 02/17/20 05:15 06:04 11:50 WBC Corrected WBC (auto) RBC Hgb Hct MCV MCH MCHC RDW Plt Count MPV Absolute Neuts (auto) Neutrophils % Lymphocytes % Monocytes % Eosinophils % Basophils % Nucleated RBC % Platelet Estimate Platelet Comment PT with INR INR PTT (Actin FS) Sodium Potassium Chloride Carbon Dioxide Anion Gap BUN Creatinine Est GFR (CKD-EPI)AfAm Est GFR (CKD-EPI)NonAf POC Glucometer 193 300 Random Glucose Hemoglobin A1c % 11.4 H Calcium Phosphorus Magnesium Total Bilirubin AST ALT Alkaline Phosphatase Creatine Kinase Troponin I Total Protein Albumin Triglycerides Cholesterol Total LDL Cholesterol HDL Cholesterol TSH Urine Color Urine Appearance Urine pH Ur Specific [place] Urine Protein Urine Glucose (UA) Urine Ketones Urine Blood Urine Nitrite Urine Bilirubin Urine Urobilinogen Ur Leukocyte Esterase Urine WBC (Auto) Urine RBC (Auto) Urine Casts (Auto) U Epithel Cells (Auto) Urine Bacteria (Auto) Blood Type Antibody Screen Active Medications Generic Name Dose Route Start Last Admin Trade Name Gibson PRN Reason Stop Dose Admin Aspirin 81 mg 02/17/20 10:00 02/17/20 09:24 Asa - PO 81 mg DAILY KELLY Administration Atorvastatin Calcium 40 mg 02/17/20 22:00 Lipitor - PO HS KELLY Ceftriaxone Sodium 1 gm/ 50 mls @ 200 mls/hr 02/17/20 10:00 02/17/20 11:11 Dextrose IVPB 200 mls/hr DAILY KELLY Administration Protocol Sodium Chloride 1,000 mls @ 50 mls/hr 02/17/20 14:45 Normal Saline - IV ASDIR KELLY Insulin Aspart 1 vial 02/17/20 07:00 02/17/20 11:50 Novolog Vial Sliding Scale - SQ 6 units ACHS KELLY Administration Protocol Sitagliptin Phosphate 100 mg 02/18/20 07:00 Januvia - PO DAILY@0700 [facility] [place] ASSESSMENT/PLAN: Pt is a 69 y/o male with DM, HTN, HLD, CVA who presents after possible syncope. #?syncope vs orthostatic hypotension -f/u echo -carotid dopplers unremarkable -orthostatic negative today -tele monitoring -IV fluids -hold lisinopril for hypotension -MRI brain -neuro following #UTI -60 WBCs -ceftriaxone -urine cx #transaminitis -significant increase today from initial labs -likely 2/2 to hypotension -hepatocellular in origin -abd pain present -U/S #IDDM -unsure if pt is following regimen correctly -A1C 11.4 -Januvia 100mg daily -SSI -BGMs FEN NS 50mL/hr monitor labs sodium-controlled diet DVT Ppx Lovenox 40mg daily dispo tele FULL CODE Visit type - Emergency Visit Emergency Visit: Yes ED Registration Date: 02/16/20 Care time: The patient presented to the Emergency Department on the above date and was hospitalized for further evaluation of their emergent condition. - New Patient This patient is new to me today: Yes Date on this admission: 02/17/20 - Critical Care Critical Care patient: No ATTENDING PHYSICIAN STATEMENT I saw and evaluated the patient. I reviewed the resident's note and discussed the case with the resident. I agree with the resident's findings and plan as documented. SUBJECTIVE: OBJECTIVE: ASSESSMENT AND PLAN:
[2020-02-17] MEDS ORDERED: SODIUM CHLORIDE 1,000 ML IV SCH (14:45)
--- NOTE | 2020-02-17 16:00 | PN ---
Teaching Attending Note Name of Resident: Estefani Lal ATTENDING PHYSICIAN STATEMENT I saw and evaluated the patient. I reviewed the resident's note and discussed the case with the resident. I agree with the resident's findings and plan as documented. SUBJECTIVE: No pain, no fever or chills. No TRUONG. He does not remember what happened. He lives at home alone, and denies any family around. He reports h/o DM, and reports using insulin at home with hypoglycemia. he does not remember the dosages. OBJECTIVE: NAD, awake, alert, knows his age, and location , but not year. CV: RRR Lungs: CTAB . Ext: No edema or erythema. dry skin . no fungal infection Neuro: EOMI, no facial droop. tongue at mid line. strength 5/5 in upper and lower extremities proximally and distally. sensation to light touch NL. Abd: soft, TTP in RUQ, neg Amezcua's, TTP in suprapubic area. No rebound . No guarding ASSESSMENT AND PLAN: 69 y/o man with h/o HTN, HLP, ? DM and CVA who presented with a fall. 1- Fall, can't r/o Syncope. tele with SVTs. doubt stroke. can't r/o seizure but unlikely as has no hx. ? orthosdtatic hypotension - No orthostatic drop in BP today - Echo and MRI - appreciate card and neuro - possible BB is BP tolerates 2- Transaminitis: ? due to transient hypotension/hypoerfusion. doubt obstructive process - check US of RUQ - Monitor level s 3- Possible UTI: due to pyusir aand suprapubic tenderness - cont CTX. Ucx pending 3- Pleural thickening and possible effusion . no clinical signs of PNA and No infiltrates. dc azithro check CT of chest 4- adrenal nodule : need f/u imaging and hormonal testing as out pt 5- DM : A1c 11.4 . he admits to having Dm and being on Insulin. Forgetful and not sure of his regimen. ? safety of insulin in this gentleman who lives a lone and has memory impairment. - cont SSi for now - will try to reach PCP for details - try to explore if he has family - start januvia here and add metfromin at dc 6- Encephalopathy , likely metabolic in setting of UTI . not sure of base line . ? early dementia. monitor 7- Add lovenox for DVT px
[2020-02-17] MEDS ORDERED: MELATONIN 5 MG TABLETS PO ONE (20:56)
[2020-02-17] MEDS: ATORVASTATIN CA 40 MG TABLET (FP) PO SCH (21:20)
[2020-02-17] MEDS ORDERED: ATORVASTATIN CA 40 MG TABLET (FP) PO SCH (22:00)
[2020-02-18] MEDS: INSULIN SLIDING SCALE (NOVOLOG) 1 VIAL SQ SCH ×4 (06:47→21:51)
[2020-02-18 07:44] LABS: ALBUMIN 2.7 g/dl (3.4-5.0); BILIRUBIN,TOTAL 0.4 mg/dL (0.2-1); BLOOD UREA NITROGEN 20.7 mg/dL (7-18); CALCIUM 7.8 mg/dL (8.5-10.1); MAGNESIUM 1.8 mg/dL (1.8-2.4); TOT PROT 5.8 g/dl (6.4-8.2)
[2020-02-18] MEDS ORDERED: DEXTROSE 5%-WATER - 50 ML IVPB ONE (09:24)
[2020-02-18] MEDS ORDERED: cefTRIAXone SODIUM 1 GM VIAL ONE (09:24)
[2020-02-18] MEDS: FERROUS SO4 325 MG TABLET (FP) PO SCH (10:10)
[2020-02-18] MEDS: ASCORBIC ACID 500 MG TABLET (FP) PO SCH (10:11)
[2020-02-18] MEDS: CEFTRIAXONE 1 GM in DEXTROSE 5%-WATER - 50 ML IVPB SCH (10:11)
[2020-02-18] MEDS: ASPIRIN 81 MG CHEWABLE TABLETS PO SCH (10:11)
[2020-02-18] MEDS: ENOXAPARIN NA (PORCINE) 40 MG/0.4 ML DISP.SYRIN SQ SCH (10:11)
--- NOTE | 2020-02-18 11:42 | ECHO ---
Name: BHAKTI REYNOSO Maryanne Exam:Adult Echocardiogram Study Date: 02/18/2020 09:18 AM Age: 69 yrs Reason For Study: svt Height: 70 in Weight: 193 lb BSA: 2.1 m2 MMode/2D Measurements & Calculations IVSd: 1.3 cm Ao root diam: 3.5 cm LVIDd: 3.5 cm LA dimension: 3.4 cm LVIDs: 2.4 cm LVPWd: 1.6 cm LVPWs: 1.6 cm EDV(Teich): 52.2 ml ESV(Teich): 20.0 ml LVOT diam: 2.2 cm TAPSE: 2.6 cm RV S Humberto: 17.2 cm/sec Doppler Measurements & Calculations MV E max humberto: 63.7 cm/sec Ao V2 max: 138.5 cm/sec MV A max humberto: 90.8 cm/sec Ao max P.7 mmHg MV E/A: 0.70 MV dec time: 0.23 sec EPHRAIM(V,D): 3.1 cm2 LV V1 max P.2 mmHg PA V2 max: 108.6 cm/sec LV V1 max: 114.5 cm/sec PA max P.7 mmHg Med Peak E' Humberto: 4.8 cm/sec Med E/e': 13.2 Lat Peak E' Humberto: 6.0 cm/sec Lat E/e': 10.6 Procedure A two-dimensional transthoracic echocardiogram with color flow and Doppler was performed. The patient was in normal sinus rhythm during the exam. Left Ventricle The left ventricle is normal in size. There is mild concentric left ventricular hypertrophy. Left sonam tricular systolic function is normal. Ejection Fraction = 60%. The transmitral spectral Doppler flow pattern i s suggestive of impaired LV relaxation. Right Ventricle The right ventricle is normal in size and function. Atria Normal left and right atrial size and function. Mitral Valve The mitral valve is grossly normal. There is trace mitral regurgitation. Tricuspid Valve The tricuspid valve is not well visualized, but is grossly normal. There is trace tricuspid regurgita tion. There was insufficient TR detected to calculate RV systolic pressure. Aortic Valve There is mild to moderate aortic valve thickening. No hemodynamically significant valvular aortic luis miguel nosis. Pulmonic Valve The pulmonic valve is not well visualized. Great Vessels The aortic root is normal size. Pericardium/Pleura Trivial pericardial effusion not hemodynamically significant. Interpretation Summary The left ventricle is normal in size. There is mild concentric left ventricular hypertrophy. Left ventricular systolic function is normal. The transmitral spectral Doppler flow pattern is suggestive of impaired LV relaxation. Normal left and right atrial size and function. There is trace mitral regurgitation. There is trace tricuspid regurgitation. There was insufficient TR detected to calculate RV systolic pressure. No hemodynamically significant valvular aortic stenosis. MD Devon Fry 02/18/2020 11:41 AM
--- NOTE | 2020-02-18 14:39 | PN ---
Progress Note, Physician Chief Complaint: No complaints No events overnight Very brief svt episode today History of Present Illness: 69 year old male poor historian pmhx obtained from chart as patient denied any medical problems. H/o htn, hld, and prior CVA with R residual weakness presenting after a fall. All patient can inform me is that he slipped and fell and hit his face. Denies any LOC but cannot describe anything else about event. Denies any chest pain, sob, or palpitations. Says he lives alone. (1) Head CT-neg acute intracranial pathology. small chronic right frontoparietal periventricular infarct punctate chronic right basal ganglia infarct (2) C-Spine CT- neg fx (3) Thoracic CT- neg fx (4) Lumbar CT- neg fx CE's negative x3 A1C 11 EKG: sinus tachycardia at 107 with pac's, no acute ischemic changes. - Current Medication List Current Medications: Active Medications Ascorbic Acid (Vitamin C -) 500 mg PO DAILY@0800 [facility] Last Admin: 02/18/20 10:11 Dose: 500 mg Documented by: Aspirin (Asa -) 81 mg PO DAILY [facility] Last Admin: 02/18/20 10:11 Dose: 81 mg Documented by: Atorvastatin Calcium (Lipitor -) 40 mg PO HS [facility] Last Admin: 02/17/20 21:20 Dose: 40 mg Documented by: Enoxaparin Sodium (Lovenox -) 40 mg SQ DAILY [facility] Last Admin: 02/18/20 10:11 Dose: 40 mg Documented by: Ferrous Sulfate (Feosol -) 325 mg PO DAILY@0800 [facility] Last Admin: 02/18/20 10:10 Dose: 325 mg Documented by: Insulin Aspart (Novolog Vial Sliding Scale -) 1 vial SQ [facility]; Protocol Last Admin: 02/18/20 11:24 Dose: 4 units Documented by: Lisinopril (Prinivil) 20 mg PO DAILY [facility] Sitagliptin Phosphate (Januvia -) 100 mg PO DAILY@0700 [facility] Last Admin: 02/18/20 06:37 Dose: 100 mg Documented by: - Objective Vital Signs: Vital Signs Temperature 98.5 F 02/18/20 09:00 Pulse Rate 77 02/18/20 09:00 Respiratory Rate 20 02/18/20 09:00 Blood Pressure 130/74 02/18/20 09:00 O2 Sat by Pulse Oximetry (%) 94 L 02/18/20 09:00 Constitutional: Yes: No Distress Neck: Yes: Supple Cardiovascular: Yes: Regular Rate and Rhythm. No: JVD Respiratory: Yes: CTA Bilaterally Gastrointestinal: Yes: Soft Edema: No Labs: CBC, BMP 02/17/20 05:15 02/18/20 06:01 INR, PTT INR 0.89 (0.83-1.09) 02/16/20 16:11 Problem List - Problems (1) Acute metabolic encephalopathy Code(s): G93.41 - METABOLIC ENCEPHALOPATHY (2) Syncope Code(s): R55 - SYNCOPE AND COLLAPSE Qualifiers: Syncope type: unspecified Qualified Code(s): R55 - Syncope and collapse Assessment/Plan 69 year old male poor historian pmhx obtained from chart as patient denied any medical problems. H/o htn, hld, and prior CVA with R residual weakness presenting after a fall. All patient can inform me is that he slipped and fell and hit his face. Denies any LOC but cannot describe anything else about event. Denies any chest pain, sob, or palpitations. Says he lives alone. (1) Head CT-neg acute intracranial pathology. small chronic right frontoparietal periventricular infarct punctate chronic right basal ganglia infarct (2) C-Spine CT- neg fx (3) Thoracic CT- neg fx (4) Lumbar CT- neg fx CE's negative x3 A1C 11 EKG: sinus tachycardia at 107 with pac's, no acute ischemic changes. 1) Fall/confusion -f/u neurology recs -Carotid's no stenosis Pending MRI brain Echocardiogram normal LVEF and no significant valve disease. Tele with brief episode of svt today likely unrelated to event at home. No av ya blockers at this time given resting HR at times around 60bpm and bp 110s systolic Abx for possible pna as per primary team. F/u cultures. A1C is 11 and treatment as per primary team Continue aspirin Hold statin given bump in ast/alt No other cardiac testing at this time.
--- NOTE | 2020-02-18 17:56 | PN ---
Physical Exam: SUBJECTIVE: Patient seen and examined. He denies TRUONG and dizziness. He reports left side and epigastric abdominal pain. OBJECTIVE: Vital Signs Period Temp Pulse Resp BP Sys/Christian Pulse Ox Last 24 Hr 97.5 F-98.5 F 68-83 16-26 105-132/56-86 94-95 GENERAL: The patient is awake, alert, in no acute distress. HEAD: Normal with no signs of trauma. EYES: PERRL, extraocular movements intact, sclera anicteric, conjunctiva clear. ENT: Ears normal, nares patent, moist mucous membranes. NECK: Trachea midline. LUNGS: Clear to auscultation bilaterally, no wheezes, no crackles. HEART: Regular rate and rhythm, no murmur. ABDOMEN: Soft, LUQ and epigastrum tender to palpation, nondistended, normoactive bowel sounds. EXTREMITIES: Warm, well-perfused, no edema. Proximal muscle atrophy. NEUROLOGICAL: Cranial nerves II through XII grossly intact. Normal speech. PSYCH: Normal mood, normal affect. SKIN: Warm, dry, normal turgor. Laboratory Results - last 24 hr 02/16/20 02/17/20 02/18/20 20:30 21:24 06:01 Sodium 138 Potassium 4.0 Chloride 108 H Carbon Dioxide 20 L Anion Gap 10 BUN 20.7 H Creatinine 1.0 Est GFR (CKD-EPI)AfAm 87.99 Est GFR (CKD-EPI)NonAf 75.92 POC Glucometer 326 Random Glucose 231 H Calcium 7.8 L Magnesium 1.8 Total Bilirubin 0.4 AST 86 H ALT 179 H Alkaline Phosphatase 224 H Total Protein 5.8 L Albumin 2.7 L Vitamin B12 311 Serum Folate 18 H COVID-19 ([facility]ALIE) Not detected 02/18/20 02/18/20 06:39 11:21 Sodium Potassium Chloride Carbon Dioxide Anion Gap BUN Creatinine Est GFR (CKD-EPI)AfAm Est GFR (CKD-EPI)NonAf POC Glucometer 236 227 Random Glucose Calcium Magnesium Total Bilirubin AST ALT Alkaline Phosphatase Total Protein Albumin Vitamin B12 Serum Folate COVID-19 ([facility]ALIE) Active Medications Generic Name Dose Route Start Last Admin Trade Name Freq PRN Reason Stop Dose Admin Ascorbic Acid 500 mg 02/18/20 08:00 02/18/20 10:11 Vitamin C - PO 500 mg DAILY@0800 [facility] Administration Aspirin 81 mg 02/18/20 10:00 02/18/20 10:11 Asa - PO 81 mg DAILY [facility] Administration Atorvastatin Calcium 40 mg 02/17/20 22:00 02/17/20 21:20 Lipitor - PO 40 mg HS [facility] Administration Enoxaparin Sodium 40 mg 02/18/20 10:00 02/18/20 10:11 Lovenox - SQ 40 mg DAILY [facility] Administration Ferrous Sulfate 325 mg 02/18/20 08:00 02/18/20 10:10 Feosol - PO 325 mg DAILY@0800 [facility] Administration Insulin Aspart 1 vial 02/17/20 07:00 02/18/20 11:24 Novolog Vial Sliding Scale - SQ 4 units ACHS [facility] Administration Protocol Lisinopril 20 mg 02/18/20 10:00 Prinivil PO DAILY [facility] Sitagliptin Phosphate 100 mg 02/18/20 07:00 02/18/20 06:37 Januvia - PO 100 mg DAILY@0700 [facility] Administration ASSESSMENT/PLAN: Pt is a 69 y/o male with DM, HTN, HLD, CVA who presents after possible syncope. #?syncope vs orthostatic hypotension -f/u echo- normal EF; LVH and diastolic dysfunction -carotid dopplers unremarkable -orthostatic negative -tele monitoring -IV fluids d/c'ed -hold lisinopril for hypotension -MRI brain -neuro following #pyuria -ceftriaxone d/c'ed -urine cx negative #transaminitis, improving -likely 2/2 to hypotension -hepatocellular in origin -abd pain present -U/S- diffuse fatty infiltration of liver, contracted gallbladder with calculi #IDDM -unsure if pt is following regimen correctly -A1C 11.4 -Januvia 100mg daily -SSI -BGMs FEN PO fluids monitor labs sodium-controlled diet DVT Ppx Lovenox 40mg daily dispo tele FULL CODE Visit type - Emergency Visit Emergency Visit: Yes ED Registration Date: 02/16/20 Care time: The patient presented to the Emergency Department on the above date and was hospitalized for further evaluation of their emergent condition. - New Patient This patient is new to me today: No - Critical Care Critical Care patient: No ATTENDING PHYSICIAN STATEMENT I saw and evaluated the patient. I reviewed the resident's note and discussed the case with the resident. I agree with the resident's findings and plan as documented. SUBJECTIVE: OBJECTIVE: ASSESSMENT AND PLAN:
--- NOTE | 2020-02-18 19:42 | PN ---
Teaching Attending Note Name of Resident: Estefani Lal ATTENDING PHYSICIAN STATEMENT I saw and evaluated the patient. I reviewed the resident's note and discussed the case with the resident. I agree with the resident's findings and plan as documented. SUBJECTIVE: no pain, no SOB , no fever OBJECTIVE: NAD, awake, alert CV: RRR Lungs: CTAB. Ext: No edema or erythema. dry skin. Abd: soft, NT. ASSESSMENT AND PLAN: 69 y/o man with h/o HTN, HLP, ? DM and CVA who presented with a fall. 1- Fall, can't r/o Syncope. - start toprol for SVTS 2- Transaminitis: ? due to transient hypotension/hypoerfusion. doubt obstructive process - US of RUQ reviewed. LFTS trended down 3- UTI: urine cx was taken after Abx were administered ( per chart review) - cont CTX treat for total of 7 donaldson . day 3 today 3- Pleural thickening and possible effusion . no clinical signs of PNA and No infiltrates. CT reviewed. No colsolidation consult pulm fro pulm nodules 4- adrenal nodule : need f/u imaging and hormonal testing as out pt 5- DM : A1c 11.4 . sugar is climbing up . meds confrmed . he takes insulin . - will cont januvia - add levemir - can't reach family to discuss about safety of insulin . ?NH 6- Encephalopathy , likely metabolic in setting of UTI . not sure of base line . ? early dementia. monitor MRI pending 7- Add lovenox for DVT px
[2020-02-18] MEDS: ATORVASTATIN CA 40 MG TABLET (FP) PO SCH (21:47)
[2020-02-19] MEDS ORDERED: MELATONIN 5 MG TABLETS PO ONE ×2 (00:16→21:40)
[2020-02-19] MEDS: INSULIN (LEVEMIR) 100 UNITS/ML UNITS SQ SCH (06:17)
[2020-02-19] MEDS: INSULIN SLIDING SCALE (NOVOLOG) 1 VIAL SQ SCH ×4 (06:18→21:33)
[2020-02-19 06:52] LABS: BASO % 0.8 % (0-2.0); EOS % 8.4 % (0-4.5); HEMATOCRIT 33.9 % (35.4-49); HEMOGLOBIN 10.8 GM/dL (11.7-16.9); LYMPH % 28.8 % (8-40); MCH 24.3 pg (25.7-33.7); MCHC 31.8 g/dl (32.0-35.9); MEAN CELL VOLUME 76.4 fl (80-96); MONO % 7.2 % (3.8-10.2); NEUT % 54.8 % (42.8-82.8); PLATELET COUNT 171 K/MM3 (134-434); RBC 4.44 M/mm3 (4.00-5.60); RDW 18.9 % (11.9-15.9); WHITE BLOOD COUNT 5.8 K/mm3 (4.0-10.0)
[2020-02-19 06:54] LABS: ALBUMIN 2.6 g/dl (3.4-5.0); BILIRUBIN,DIRECT 0.1 mg/dL (0.0-0.2); BILIRUBIN,TOTAL 0.4 mg/dL (0.2-1); TOT PROT 5.5 g/dl (6.4-8.2)
[2020-02-19] MEDS ORDERED: DEXTROSE 5%-WATER - 50 ML IVPB ONE (08:25)
[2020-02-19] MEDS ORDERED: cefTRIAXone SODIUM 1 GM VIAL ONE (08:25)
--- NOTE | 2020-02-19 08:27 | PN ---
Progress Note, Physician History of Present Illness: 69 y/o man with h/o HTN, HLP, ? DM and CVA who presented with a fall. - Current Medication List Current Medications: Active Medications Ascorbic Acid (Vitamin C -) 500 mg PO DAILY@0800 [facility] Last Admin: 02/18/20 10:11 Dose: 500 mg Documented by: Aspirin (Asa -) 81 mg PO DAILY [facility] Last Admin: 02/18/20 10:11 Dose: 81 mg Documented by: Atorvastatin Calcium (Lipitor -) 40 mg PO HS [facility] Last Admin: 02/18/20 21:47 Dose: 40 mg Documented by: Enoxaparin Sodium (Lovenox -) 40 mg SQ DAILY [facility] Last Admin: 02/18/20 10:11 Dose: 40 mg Documented by: Ferrous Sulfate (Feosol -) 325 mg PO DAILY@0800 [facility] Last Admin: 02/18/20 10:10 Dose: 325 mg Documented by: Ceftriaxone Sodium 1 gm/ (Dextrose) 50 mls @ 100 mls/hr IVPB DAILY [facility] Insulin Aspart (Novolog Vial Sliding Scale -) 1 vial SQ ACHS [facility]; Protocol Last Admin: 02/19/20 06:18 Dose: 2 units Documented by: Insulin Detemir (Levemir Vial) 10 units SQ AM [facility] Last Admin: 02/19/20 06:17 Dose: 10 units Documented by: Lisinopril (Prinivil) 20 mg PO DAILY [facility] Metoprolol Succinate (Toprol Xl -) 12.5 mg PO DAILY [facility] Sitagliptin Phosphate (Januvia -) 100 mg PO DAILY@0700 [facility] Last Admin: 02/19/20 06:18 Dose: 100 mg Documented by: - Objective Vital Signs: Vital Signs Temperature 98.3 F 02/19/20 05:44 Pulse Rate 66 02/19/20 05:44 Respiratory Rate 24 H 02/19/20 05:44 Blood Pressure 124/72 02/19/20 05:44 O2 Sat by Pulse Oximetry (%) 94 L 02/18/20 21:00 Labs: CBC, BMP 02/19/20 05:30 02/18/20 06:01 INR, PTT INR 0.89 (0.83-1.09) 02/16/20 16:11 Problem List - Problems (1) Fall at home Assessment/Plan: neuro on board pt eval Code(s): W19.XXXA - UNSPECIFIED FALL, INITIAL ENCOUNTER; Y92.009 - UNSP PLACE IN UNSP NON-INSTITUT (PRIVATE) RESIDENCE PLACE (2) HLD (hyperlipidemia) Code(s): E78.5 - HYPERLIPIDEMIA, UNSPECIFIED (3) HTN (hypertension) Assessment/Plan: monitor on current meds Code(s): I10 - ESSENTIAL (PRIMARY) HYPERTENSION (4) History of cerebrovascular accident (CVA) with residual deficit Code(s): I69.30 - UNSPECIFIED SEQUELAE OF CEREBRAL INFARCTION (5) Pleural thickening Assessment/Plan: Pulm consult (6) Acute metabolic encephalopathy Assessment/Plan: likely metabolic ? UTI . possible early dementia. monitor MRI pending Code(s): G93.41 - METABOLIC ENCEPHALOPATHY (7) Transaminitis Assessment/Plan: due to transient hypotension/hypoerfusion. doubt obstructive process - US of RUQ reviewed. LFTS trended down -hepatitis panel -GI consult Code(s): R74.0 - NONSPEC ELEV OF LEVELS OF TRANSAMNS & LACTIC ACID DEHYDRGNSE
[2020-02-19] MEDS: ASCORBIC ACID 500 MG TABLET (FP) PO SCH (08:38)
[2020-02-19] MEDS: FERROUS SO4 325 MG TABLET (FP) PO SCH (08:38)
[2020-02-19] MEDS: CEFTRIAXONE 1 GM in DEXTROSE 5%-WATER - 50 ML IVPB SCH ×2 (09:09→17:22)
[2020-02-19] MEDS: ENOXAPARIN NA (PORCINE) 40 MG/0.4 ML DISP.SYRIN SQ SCH (09:09)
[2020-02-19] MEDS: ASPIRIN 81 MG CHEWABLE TABLETS PO SCH (09:09)
[2020-02-19] MEDS ORDERED: metoPROLOL SUCCINATE 25 MG TAB.SR.24H (FP) PO SCH (10:00)
[2020-02-19] MEDS: LISINOPRIL 20 MG TABLET (FP) PO SCH (10:02)
--- NOTE | 2020-02-19 13:26 | PN ---
Progress Note, Physician Chief Complaint: No complaints No events on tele History of Present Illness: 69 year old male poor historian pmhx obtained from chart as patient denied any medical problems. H/o htn, hld, and prior CVA with R residual weakness presenting after a fall. All patient can inform me is that he slipped and fell and hit his face. Denies any LOC but cannot describe anything else about event. Denies any chest pain, sob, or palpitations. Says he lives alone. (1) Head CT-neg acute intracranial pathology. small chronic right frontoparietal periventricular infarct punctate chronic right basal ganglia infarct (2) C-Spine CT- neg fx (3) Thoracic CT- neg fx (4) Lumbar CT- neg fx CE's negative x3 A1C 11 EKG: sinus tachycardia at 107 with pac's, no acute ischemic changes. - Current Medication List Current Medications: Active Medications Ascorbic Acid (Vitamin C -) 500 mg PO DAILY@0800 [facility] Last Admin: 02/19/20 08:38 Dose: 500 mg Documented by: Aspirin (Asa -) 81 mg PO DAILY [facility] Last Admin: 02/19/20 09:09 Dose: 81 mg Documented by: Atorvastatin Calcium (Lipitor -) 40 mg PO HS [facility] Last Admin: 02/18/20 21:47 Dose: 40 mg Documented by: Enoxaparin Sodium (Lovenox -) 40 mg SQ DAILY [facility] Last Admin: 02/19/20 09:09 Dose: 40 mg Documented by: Ferrous Sulfate (Feosol -) 325 mg PO DAILY@0800 [facility] Last Admin: 02/19/20 08:38 Dose: 325 mg Documented by: Ceftriaxone Sodium 1 gm/ (Dextrose) 50 mls @ 100 mls/hr IVPB DAILY [facility] Last Admin: 02/19/20 09:09 Dose: 100 mls/hr Documented by: Insulin Aspart (Novolog Vial Sliding Scale -) 1 vial SQ ACHS [facility]; Protocol Last Admin: 02/19/20 12:02 Dose: 6 units Documented by: Insulin Detemir (Levemir Vial) 10 units SQ AM [facility] Last Admin: 02/19/20 06:17 Dose: 10 units Documented by: Lisinopril (Prinivil) 20 mg PO DAILY [facility] Last Admin: 02/19/20 10:02 Dose: Not Given Documented by: Sitagliptin Phosphate (Januvia -) 100 mg PO DAILY@0700 [facility] Last Admin: 02/19/20 06:18 Dose: 100 mg Documented by: - Objective Vital Signs: Vital Signs Temperature 97.9 F 02/19/20 10:00 Pulse Rate 67 02/19/20 10:00 Respiratory Rate 20 02/19/20 10:00 Blood Pressure 118/55 L 02/19/20 10:00 O2 Sat by Pulse Oximetry (%) 96 02/19/20 09:00 Constitutional: Yes: No Distress Neck: Yes: Supple Cardiovascular: Yes: Regular Rate and Rhythm, S1, S2. No: Murmur Respiratory: Yes: CTA Bilaterally Gastrointestinal: Yes: Soft Edema: No Labs: CBC, BMP 02/19/20 05:30 02/18/20 06:01 INR, PTT INR 0.89 (0.83-1.09) 02/16/20 16:11 Problem List - Problems (1) Acute metabolic encephalopathy Code(s): G93.41 - METABOLIC ENCEPHALOPATHY (2) Syncope Code(s): R55 - SYNCOPE AND COLLAPSE Qualifiers: Syncope type: unspecified Qualified Code(s): R55 - Syncope and collapse Assessment/Plan 69 year old male poor historian pmhx obtained from chart as patient denied any medical problems. H/o htn, hld, and prior CVA with R residual weakness presenting after a fall. All patient can inform me is that he slipped and fell and hit his face. Denies any LOC but cannot describe anything else about event. Denies any chest pain, sob, or palpitations. Says he lives alone. (1) Head CT-neg acute intracranial pathology. small chronic right frontoparietal periventricular infarct punctate chronic right basal ganglia infarct (2) C-Spine CT- neg fx (3) Thoracic CT- neg fx (4) Lumbar CT- neg fx CE's negative x3 A1C 11 EKG: sinus tachycardia at 107 with pac's, no acute ischemic changes. 1) Fall/confusion Unclear etiology. Possibly metabolic/infectious/dementia/hypotension -f/u neurology recs -Carotid's no stenosis Pending MRI brain Echocardiogram normal LVEF and no significant valve disease. Tele with brief episode of svt today likely unrelated to event at home. Would not give low dose metoprolol as on this little dose his HR goes to 50s Also would consider lower dose of lisinopril. His bp is normal on no meds so would likely need less than 20mg of lisinopril. May have contributed to hypotension at home resulting in bump in ast/alt. LFTs trending down. Abx for possible pna as per primary team. A1C is 11 and treatment as per primary team Continue aspirin No other cardiac testing at this time as an inpatient. Upon discharge as an outpatient would plan for 2 week event monitor. Can follow up with primary team or with Dr. Adrian [phone]
--- NOTE | 2020-02-19 14:44 | CON.PULM ---
Consult Consult Specialty:: PULM/CCM Referred by:: JAYJAY Reason for Consultation:: Abnormal CT Chest - History of Present Illness History of Present Illness: 69 M, HTN, HPL, and CVA with residual right weakness. Patient is a poor historian for information is garnered from the medical record. Admitted via the ER after a mechanical fall. Denies LOC. Denies any chest pain, SOB, or palpitations. No fever or chills. CT Chest reviewed: chronic changes / multiple sub-centimeter granulomas / partial atelectasis of the posterior RLL - History Source History Provided By: Patient, Medical Record Limitations to Obtaining History: Poor Historian - Past Medical History Pulmonary: No: Asthma, Bronchitis, Cancer, COPD, O2 Dependent, Pneumonia, Pre viously Intubated, Pulmonary Embolus, Pulmonary Fibrosis, Sleep Apnea - Alcohol/Substance Use Hx Alcohol Use: No - Smoking History Smoking history: Former smoker Have you smoked in the past 12 months: No Home Medications - Allergies Allergies/Adverse Reactions: Allergies Allergy/AdvReac Type Severity Reaction Status Date / Time No Known Allergies Allergy Verified 06/06/17 08:19 - Home Medications Home Medications: Ambulatory Orders Ascorbate Calcium [Vitamin C] 500 mg PO DAILY 05/22/17 Aspirin [ASA -] 81 mg PO DAILY 05/22/17 Atorvastatin Ca [Lipitor] 40 mg PO HS 05/22/17 Insulin Degludec [Tresiba Flextouch U-100] 15 unit SQ DAILY 05/22/17 Lisinopril [Prinivil] 20 mg PO DAILY 05/22/17 Sitagliptin Phosphate [Januvia] 100 mg PO DAILY 05/22/17 Ferrous Sulfate 325 mg PO DAILY 02/17/20 Liraglutide [Victoza -] 0.2 mg SQ DAILY@0700 02/17/20 Review of Systems Unable to obtain ROS, reason: Poor historian - Review of Systems Constitutional: denies: Chills, Fever Eyes: reports: No Symptoms HENT: reports: No Symptoms Neck: reports: No Symptoms Cardiovascular: reports: No Symptoms Respiratory: reports: No Symptoms Gastrointestinal: reports: No Symptoms Genitourinary: reports: No Symptoms Breasts: reports: No Symptoms Reported Musculoskeletal: reports: No Symptoms Integumentary: reports: No Symptoms Neurological: reports: No Symptoms Endocrine: reports: No Symptoms Hematology/Lymphatic: reports: No Symptoms Psychiatric: reports: No Symptoms Physical Exam Vital Sings: Vital Signs Temperature 97.9 F 02/19/20 10:00 Pulse Rate 67 02/19/20 10:00 Respiratory Rate 20 02/19/20 10:00 Blood Pressure 118/55 L 02/19/20 10:00 O2 Sat by Pulse Oximetry (%) 96 02/19/20 09:00 Constitutional: Yes: No Distress, Calm Eyes: Yes: Conjunctiva Clear, EOM Intact HENT: Yes: Atraumatic, Normocephalic Neck: Yes: Supple, Trachea Midline Cardiovascular: Yes: Regular Rate and Rhythm Respiratory: Yes: Diminished. No: Accessory Muscle Use, Rales, Rhonchi, SOB, SOB on Exertion, Stridor, Tachypnea, Wheezes ...Inspection: Yes: WNL ...Clubbing: No Gastrointestinal: Yes: Normal Bowel Sounds, Soft Renal/: Yes: WNL Musculoskeletal: Yes: WNL Extremities: Yes: WNL Edema: No Peripheral Pulses WNL: Yes Integumentary: Yes: WNL Neurological: Yes: Alert, Confusion, Pre-Existing Deficit Psychiatric: Yes: Alert Labs: CBC, BMP 02/19/20 05:30 02/18/20 06:01 Imaging - Results Chest X-ray: Report Reviewed, Image Reviewed Cat Scan: Report Reviewed, Image Reviewed Problem List - Problems (1) Calcified granuloma of lung Code(s): J84.10 - PULMONARY FIBROSIS, UNSPECIFIED (2) Pleural effusion Code(s): J90 - PLEURAL EFFUSION, NOT ELSEWHERE CLASSIFIED (3) Atelectasis of right lung Code(s): J98.11 - ATELECTASIS (4) Fall at home Code(s): W19.XXXA - UNSPECIFIED FALL, INITIAL ENCOUNTER; Y92.009 - UNSP PLACE IN UNSP NON-INSTITUT (PRIVATE) RESIDENCE PLACE (5) HLD (hyperlipidemia) Code(s): E78.5 - HYPERLIPIDEMIA, UNSPECIFIED (6) HTN (hypertension) Code(s): I10 - ESSENTIAL (PRIMARY) HYPERTENSION (7) History of cerebrovascular accident (CVA) with residual deficit Code(s): I69.30 - UNSPECIFIED SEQUELAE OF CEREBRAL INFARCTION (9) Syncope Code(s): R55 - SYNCOPE AND COLLAPSE Qualifiers: Syncope type: unspecified Qualified Code(s): R55 - Syncope and collapse Assessment/Plan IMP: Changes on imaging appear chronic in nature, likely exposure to granulomatous disease PLAN: According the the 2017 Fleischner Criteria : No CT follow up is indicated No smoking Fall precautions VTE prophylaxis Aspiration precautions Will follow Thank you. Dr Dave
--- NOTE | 2020-02-19 17:39 | CON.GI ---
Consult Consult Specialty:: GI: For Dr. Arellano, who resumes care 02/19 Referred by:: Dr. Bernice Carcamo Reason for Consultation:: Abnormal LFTs - History of Present Illness Chief Complaint: Syncope at home History of Present Illness: This consult was deferred to the GI service this afternoon. The patient, however, follows with Dr. Arellano 9consult called into his office tonight. 69M admitted for evaluation of syncope at home. Liver chemistries noted to rise. 02/15: ALP was 150 02/16: AST: 494 ALT: 342 ALP: 273 TB: 0.4. Ceftriaxone and zithromax given the and . No significant hypotension recorded and was hypertensive according to triage vitals. Statin was continued. Noted anemic as well (with elevated eosinophils). believe that he has had endoscopy and colonoscopy, the last being possibly [address] Arellano in his [facility]. Mr. Prater is aware of an anemia history. he denies rectal bleeding, melena or recent change in bowel habits. There is no family history of colorectal cancer or other GI malignancy. He denies heavy alcohol consumption in the past and describes prior social etoh use. there were no symptoms suggestive of biliary colic. Abdominal US revealed gallstones, fatty liver, right pleural effusion, non-dilated biliary tract. He gives a history of multiple abdominal surgeries for bowel obstruction and CT scan of the chest suggestive of gastrojejunostomy anatomy. - History Source History Provided By: Patient, Medical Record Limitations to Obtaining History: No Limitations - Past Medical History Cardio/Vascular: Yes: HTN, Hyperlipdemia Endocrine: Yes: Diabetes Mellitus (DM II) - Past Surgical History Additional Surgical History: Repeated abdominal surgeries for SBO / hernias x 7, possible gastrojejunostomy - Alcohol/Substance Use Hx Alcohol Use: Yes (former social) History of Substance Use: reports: None - Smoking History Smoking history: Former smoker Have you smoked in the past 12 months: No - Social History Usual Living Arrangement: Alone ADL: Independent 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 History of Recent Travel: No Home Medications - Allergies Allergies/Adverse Reactions: Allergies Allergy/AdvReac Type Severity Reaction Status Date / Time No Known Allergies Allergy Verified 06/06/17 08:19 - Home Medications Home Medications: Ambulatory Orders Ascorbate Calcium [Vitamin C] 500 mg PO DAILY 05/22/17 Aspirin [ASA -] 81 mg PO DAILY 05/22/17 Atorvastatin Ca [Lipitor] 40 mg PO HS 05/22/17 Insulin Degludec [Tresiba Flextouch U-100] 15 unit SQ DAILY 05/22/17 Lisinopril [Prinivil] 20 mg PO DAILY 05/22/17 Sitagliptin Phosphate [Januvia] 100 mg PO DAILY 05/22/17 Ferrous Sulfate 325 mg PO DAILY 02/17/20 Liraglutide [Victoza -] 0.2 mg SQ DAILY@0700 02/17/20 Family Medical History Other Family History: Mother / father: : old age. 1 sister / 1 brother: does not know their medical history. 5 sons / 4 daughters: healthy. No family history of liver disease / colorectal cancer or other GI malignancy Review of Systems - Review of Systems Constitutional: denies: Chills Cardiovascular: denies: Chest Pain Respiratory: denies: Cough Gastrointestinal: denies: Abdominal Pain, Constipation, Diarrhea, Melena, Nausea, Rectal Bleeding, Vomiting, Vomiting Blood Physical Exam-GI Vital Signs: Vital Signs Temperature 98.2 F 02/19/20 14:10 Pulse Rate 74 02/19/20 14:10 Respiratory Rate 20 02/19/20 14:10 Blood Pressure 126/67 02/19/20 14:10 O2 Sat by Pulse Oximetry (%) 96 02/19/20 09:00 Constitutional: Yes: Calm Eyes: No: Sclera Icterus Cardiovascular: Yes: Regular Rate and Rhythm. No: Murmur Respiratory: Yes: CTA Bilaterally Gastrointestinal Inspection: Yes: Scars (Multiple abdominal surgical scars). No: Distention ...Auscultate: Yes: Normoactive Bowel Sounds ...Palpate: Yes: Soft. No: Hepatomegaly, Splenomegaly, Tenderness ...Percussion: No: Tympanitic ...Rectal Exam: Yes: Other (No external lesions, no masses, light hogan stool in rectal vault, guaiac negative. Indurated enlarged prostate on exam.) Edema: No (No LE edema) Neurological: Yes: Alert Labs: CBC, BMP 02/19/20 05:30 02/18/20 06:01 INR, PTT INR 0.89 (0.83-1.09) 02/16/20 16:11 Hepatic Panel Total Bilirubin 0.4 mg/dL (0.2-1) 02/19/20 05:30 Direct Bilirubin 0.1 mg/dL (0.0-0.2) 02/19/20 05:30 AST 38 U/L (15-37) H 02/19/20 05:30 ALT 115 U/L (13-61) H 02/19/20 05:30 Alkaline Phosphatase 198 U/L (45-117) H 02/19/20 05:30 Albumin 2.6 g/dl (3.4-5.0) L 02/19/20 05:30 Imaging - Results Cat Scan: Report Reviewed Ultrasound: Report Reviewed Problem List - Problems (1) Abnormal liver function tests Assessment/Plan: sharp rise with downward trend. Asymptomatic during this and no leukocytosis. ? if medication related as he received ceftriaxone and zithromax the day before. ? if reactive from right lower lung process given finding of small right pleural effusion. Advise: Avoidance of hepatotoxic agents. Hold statin for now Contact PMD to see if baseline LFts can be obtained Hepatitis A/B serologies. HCV Antiboidy. It appears as though acute hepatitis panel was already collected. MRCP to evaluate hepatobiliary anatomy further Monitor LFTs Code(s): R94.5 - ABNORMAL RESULTS OF LIVER FUNCTION STUDIES (2) Microcytic anemia Assessment/Plan: Guaiac negative on exam and states having had endoscopic evaluation by Dr. Arellano. When Dr. Arellano resumes care 02/19, to review previous endoscopic evaluations. Also with peripheral eosinophilia that is persistent. Evaluation per PMD. Consider hematology evaluation. Code(s): D50.9 - IRON DEFICIENCY ANEMIA, UNSPECIFIED
[2020-02-19] MEDS: CEFUROXIME AXETIL 250 MG TABLET PO SCH (21:31)
[2020-02-19] MEDS: ATORVASTATIN CA 40 MG TABLET (FP) PO SCH (21:31)
[2020-02-20] MEDS: INSULIN (LEVEMIR) 100 UNITS/ML UNITS SQ SCH (06:29)
[2020-02-20] MEDS: INSULIN SLIDING SCALE (NOVOLOG) 1 VIAL SQ SCH ×4 (06:30→21:31)
[2020-02-20] MEDS ORDERED: INSULIN (NOVOLOG) ASPART 100 UNITS/ML 10ML VIAL ONE (06:35)
[2020-02-20] MEDS ORDERED: INSULIN (LEVEMIR) 100 UNITS/ML UNITS SQ ONE (06:36)
--- NOTE | 2020-02-20 09:03 | PN ---
Progress Note, Physician - Current Medication List Current Medications: Active Medications Ascorbic Acid (Vitamin C -) 500 mg PO DAILY@0800 [facility] Last Admin: 02/19/20 08:38 Dose: 500 mg Documented by: Aspirin (Asa -) 81 mg PO DAILY [facility] Last Admin: 02/19/20 09:09 Dose: 81 mg Documented by: Atorvastatin Calcium (Lipitor -) 40 mg PO HS [facility] Last Admin: 02/19/20 21:31 Dose: 40 mg Documented by: Cefuroxime Axetil (Ceftin -) 250 mg PO BID [facility] Last Admin: 02/19/20 21:31 Dose: 250 mg Documented by: Enoxaparin Sodium (Lovenox -) 40 mg SQ DAILY [facility] Last Admin: 02/19/20 09:09 Dose: 40 mg Documented by: Ferrous Sulfate (Feosol -) 325 mg PO DAILY@0800 [facility] Last Admin: 02/19/20 08:38 Dose: 325 mg Documented by: Insulin Aspart (Novolog Vial Sliding Scale -) 1 vial SQ ACHS [facility]; Protocol Last Admin: 02/20/20 06:30 Dose: 2 units Documented by: Insulin Detemir (Levemir Vial) 10 units SQ AM [facility] Last Admin: 02/20/20 06:29 Dose: 10 units Documented by: Lisinopril (Prinivil) 20 mg PO DAILY [facility] Last Admin: 02/19/20 10:02 Dose: Not Given Documented by: Sitagliptin Phosphate (Januvia -) 100 mg PO DAILY@0700 [facility] Last Admin: 02/20/20 06:28 Dose: 100 mg Documented by: - Objective Vital Signs: Vital Signs Temperature 97.8 F 02/20/20 05:55 Pulse Rate 65 02/20/20 05:55 Respiratory Rate 20 02/20/20 05:55 Blood Pressure 136/50 L 02/20/20 05:55 O2 Sat by Pulse Oximetry (%) 98 02/19/20 20:54 Cardiovascular: Yes: Regular Rate and Rhythm Respiratory: Yes: Regular, CTA Bilaterally Gastrointestinal: Yes: Normal Bowel Sounds, Soft. No: Tenderness Labs: CBC, BMP 02/19/20 05:30 02/18/20 06:01 INR, PTT INR 0.89 (0.83-1.09) 02/16/20 16:11 Problem List - Problems (1) Fall at home Assessment/Plan: neuro on board pt eval Code(s): W19.XXXA - UNSPECIFIED FALL, INITIAL ENCOUNTER; Y92.009 - UNSP PLACE IN UNSP NON-INSTITUT (PRIVATE) RESIDENCE PLACE (2) HLD (hyperlipidemia) Code(s): E78.5 - HYPERLIPIDEMIA, UNSPECIFIED (3) HTN (hypertension) Assessment/Plan: monitor on current meds Code(s): I10 - ESSENTIAL (PRIMARY) HYPERTENSION (4) History of cerebrovascular accident (CVA) with residual deficit Code(s): I69.30 - UNSPECIFIED SEQUELAE OF CEREBRAL INFARCTION (5) Pleural thickening Assessment/Plan: Pulm consult noted no further work needed (6) Acute metabolic encephalopathy Assessment/Plan: Improved likely metabolic ? UTI . possible early dementia. monitor MRI NAD Code(s): G93.41 - METABOLIC ENCEPHALOPATHY (7) Transaminitis Assessment/Plan: due to transient hypotension/hypoerfusion. doubt obstructive process - US of RUQ reviewed. LFTS trended down Laboratory Tests 02/16/20 02/17/20 02/18/20 16:11 05:15 06:01 AST 29 494 H 86 H ALT 22 342 H Alkaline Phosphatase 150 H 02/19/20 05:30 AST 38 H ALT 115 H Alkaline Phosphatase 198 H -hepatitis panel -GI consult noted--MRCP Code(s): R74.0 - NONSPEC ELEV OF LEVELS OF TRANSAMNS & LACTIC ACID DEHYDRGNSE (8) Anemia Assessment/Plan: per GI Code(s): D64.9 - ANEMIA, UNSPECIFIED
[2020-02-20] MEDS: ASCORBIC ACID 500 MG TABLET (FP) PO SCH (10:04)
[2020-02-20] MEDS: FERROUS SO4 325 MG TABLET (FP) PO SCH (10:04)
[2020-02-20] MEDS: CEFUROXIME AXETIL 250 MG TABLET PO SCH ×2 (10:04→21:31)
[2020-02-20] MEDS: ENOXAPARIN NA (PORCINE) 40 MG/0.4 ML DISP.SYRIN SQ SCH (10:04)
--- NOTE | 2020-02-20 10:04 | PN ---
Progress Note (short form) - Note Progress Note: PULMONARY APPEARS STABLE NOT ON O2 NOT TACHYPNEIC VSS/AFEBRILE Constitutional: Yes: No Distress, Calm Eyes: Yes: Conjunctiva Clear, EOM Intact HENT: Yes: Atraumatic, Normocephalic Neck: Yes: Supple, Trachea Midline Cardiovascular: Yes: Regular Rate and Rhythm Respiratory: Yes: Diminished. No: Accessory Muscle Use, Rales, Rhonchi, SOB, SOB on Exertion, Stridor, Tachypnea, Wheezes ...Inspection: Yes: WNL ...Clubbing: No Gastrointestinal: Yes: Normal Bowel Sounds, Soft Renal/: Yes: WNL Musculoskeletal: Yes: WNL Extremities: Yes: WNL Edema: No Peripheral Pulses WNL: Yes Integumentary: Yes: WNL Neurological: Yes: Alert, Confusion, Pre-Existing Deficit Psychiatric: Yes: Alert Labs: NOTED Chest X-ray: Report Reviewed, Image Reviewed Cat Scan: Report Reviewed, Image Reviewed Problem List - Problems (1) Calcified granuloma of lung Code(s): J84.10 - PULMONARY FIBROSIS, UNSPECIFIED (2) Pleural effusion Code(s): J90 - PLEURAL EFFUSION, NOT ELSEWHERE CLASSIFIED (3) Atelectasis of right lung Code(s): J98.11 - ATELECTASIS (4) Fall at home Code(s): W19.XXXA - UNSPECIFIED FALL, INITIAL ENCOUNTER; Y92.009 - UNSP PLACE IN [facility]ENCE [facility] (5) HLD (hyperlipidemia) Code(s): E78.5 - HYPERLIPIDEMIA, UNSPECIFIED (6) HTN (hypertension) Code(s): I10 - ESSENTIAL (PRIMARY) HYPERTENSION (7) History of cerebrovascular accident (CVA) with residual deficit Code(s): I69.30 - UNSPECIFIED SEQUELAE OF CEREBRAL INFARCTION (9) Syncope Code(s): R55 - SYNCOPE AND COLLAPSE Qualifiers: Syncope type: unspecified Qualified Code(s): R55 - Syncope and collapse Chronic changes likely granulomatous disease PLAN: According the the 2017 Fleischner Criteria : No CT follow up is indicated No smoking Fall precautions VTE prophylaxis Aspiration precautions PLEASE CALL BERNARDINO TAYLOR MD
[2020-02-20] MEDS: ASPIRIN 81 MG CHEWABLE TABLETS PO SCH (10:05)
[2020-02-20] MEDS: LISINOPRIL 20 MG TABLET (FP) PO SCH (10:05)
--- NOTE | 2020-02-20 14:01 | PN ---
Progress Note, Physician Chief Complaint: No complaints Sinus on tele History of Present Illness: 69 year old male poor historian pmhx obtained from chart as patient denied any medical problems. H/o htn, hld, and prior CVA with R residual weakness presenting after a fall. All patient can inform me is that he slipped and fell and hit his face. Denies any LOC but cannot describe anything else about event. Denies any chest pain, sob, or palpitations. Says he lives alone. (1) Head CT-neg acute intracranial pathology. small chronic right frontoparietal periventricular infarct punctate chronic right basal ganglia infarct (2) C-Spine CT- neg fx (3) Thoracic CT- neg fx (4) Lumbar CT- neg fx CE's negative x3 A1C 11 EKG: sinus tachycardia at 107 with pac's, no acute ischemic changes. - Current Medication List Current Medications: Active Medications Ascorbic Acid (Vitamin C -) 500 mg PO DAILY@0800 [facility] Last Admin: 02/20/20 10:04 Dose: 500 mg Documented by: Aspirin (Asa -) 81 mg PO DAILY [facility] Last Admin: 02/20/20 10:05 Dose: 81 mg Documented by: Atorvastatin Calcium (Lipitor -) 40 mg PO HS [facility] Last Admin: 02/19/20 21:31 Dose: 40 mg Documented by: Cefuroxime Axetil (Ceftin -) 250 mg PO BID [facility] Last Admin: 02/20/20 10:04 Dose: 250 mg Documented by: Enoxaparin Sodium (Lovenox -) 40 mg SQ DAILY [facility] Last Admin: 02/20/20 10:04 Dose: 40 mg Documented by: Ferrous Sulfate (Feosol -) 325 mg PO DAILY@0800 [facility] Last Admin: 02/20/20 10:04 Dose: 325 mg Documented by: Insulin Aspart (Novolog Vial Sliding Scale -) 1 vial SQ ACHS [facility]; Protocol Last Admin: 02/20/20 12:13 Dose: 4 units Documented by: Insulin Detemir (Levemir Vial) 10 units SQ AM [facility] Last Admin: 02/20/20 06:29 Dose: 10 units Documented by: Lisinopril (Prinivil) 20 mg PO DAILY [facility] Last Admin: 02/20/20 10:05 Dose: 20 mg Documented by: Sitagliptin Phosphate (Januvia -) 100 mg PO DAILY@0700 [facility] Last Admin: 02/20/20 06:28 Dose: 100 mg Documented by: - Objective Vital Signs: Vital Signs Temperature 97.8 F 02/20/20 09:00 Pulse Rate 65 02/20/20 09:00 Respiratory Rate 20 02/20/20 09:00 Blood Pressure 119/74 02/20/20 09:00 O2 Sat by Pulse Oximetry (%) 98 02/20/20 09:00 Constitutional: Yes: No Distress Neck: Yes: Supple Cardiovascular: Yes: Regular Rate and Rhythm, JVD, S1, S2 Respiratory: Yes: CTA Bilaterally Gastrointestinal: Yes: Soft Edema: No Labs: CBC, BMP 02/19/20 05:30 02/18/20 06:01 INR, PTT INR 0.89 (0.83-1.09) 02/16/20 16:11 Problem List - Problems (1) Acute metabolic encephalopathy Code(s): G93.41 - METABOLIC ENCEPHALOPATHY (2) Syncope Code(s): R55 - SYNCOPE AND COLLAPSE Qualifiers: Syncope type: unspecified Qualified Code(s): R55 - Syncope and collapse Assessment/Plan 69 year old male poor historian pmhx obtained from chart as patient denied any medical problems. H/o htn, hld, and prior CVA with R residual weakness presenting after a fall. All patient can inform me is that he slipped and fell and hit his face. Denies any LOC but cannot describe anything else about event. Denies any chest pain, sob, or palpitations. Says he lives alone. (1) Head CT-neg acute intracranial pathology. small chronic right frontoparietal periventricular infarct punctate chronic right basal ganglia infarct (2) C-Spine CT- neg fx (3) Thoracic CT- neg fx (4) Lumbar CT- neg fx CE's negative x3 A1C 11 EKG: sinus tachycardia at 107 with pac's, no acute ischemic changes. 1) Fall/confusion Unclear etiology. Possibly metabolic/infectious/dementia/hypotension -f/u neurology recs -Carotid's no stenosis MRI brain no acute pathology Echocardiogram normal LVEF and no significant valve disease. Tele with brief episode of svt on day of admission but has remained in sinus and this unlikely to be related to event at home. -Currently getting lisinopril 20mg. Monitor bp and lower dose if needed. LFTs trending down. Statin is on hold. Pending GI work up Abx for possible pna as per primary team. A1C is 11 and treatment as per primary team Continue aspirin No other cardiac testing at this time as an inpatient. Upon discharge as an outpatient would plan for 2 week event monitor. Can follow up with primary team or with Dr. Adrian [phone] DC telemetry Will sign off at this time.
--- NOTE | 2020-02-20 20:14 | PN ---
Progress Note (short form) - Note Progress Note: denies abdominal pain MRI pending PE afebrile Abd: soft non tender no hepatomegaly LFTS downward trend A> Mild hepatocellular injury most likely secondary to medication including statins R> decrease atrovastatin to 20mg daily if ok with cardiology trend LFTS check MRI
[2020-02-20] MEDS: ATORVASTATIN CA 40 MG TABLET (FP) PO SCH (21:31)
[2020-02-20] MEDS: MELATONIN 5 MG TABLETS PO SCH (23:09)
[2020-02-21] MEDS: INSULIN (LEVEMIR) 100 UNITS/ML UNITS SQ SCH (06:32)
[2020-02-21] MEDS: INSULIN SLIDING SCALE (NOVOLOG) 1 VIAL SQ SCH ×4 (06:33→21:23)
[2020-02-21] MEDS: ASCORBIC ACID 500 MG TABLET (FP) PO SCH (08:35)
[2020-02-21] MEDS: FERROUS SO4 325 MG TABLET (FP) PO SCH (08:35)
[2020-02-21] MEDS: ENOXAPARIN NA (PORCINE) 40 MG/0.4 ML DISP.SYRIN SQ SCH (09:23)
[2020-02-21] MEDS: CEFUROXIME AXETIL 250 MG TABLET PO SCH ×2 (09:24→21:22)
[2020-02-21] MEDS: ASPIRIN 81 MG CHEWABLE TABLETS PO SCH (09:24)
[2020-02-21] MEDS: LISINOPRIL 20 MG TABLET (FP) PO SCH (09:24)
--- NOTE | 2020-02-21 11:37 | PN ---
Progress Note, Physician Chief Complaint: AWAKE ALERT EVENTS AND NOTES REVIEWED DENIES FEVERS OR CHILLS DENIES CHEST PAIN SOME LIGHTHEADEDNESS - Current Medication List Current Medications: Active Medications Ascorbic Acid (Vitamin C -) 500 mg PO DAILY@0800 [facility] Last Admin: 02/21/20 08:35 Dose: 500 mg Documented by: Aspirin (Asa -) 81 mg PO DAILY [facility] Last Admin: 02/21/20 09:24 Dose: 81 mg Documented by: Atorvastatin Calcium (Lipitor -) 40 mg PO [facility] Last Admin: 02/20/20 21:31 Dose: 40 mg Documented by: Cefuroxime Axetil (Ceftin -) 250 mg PO BID [facility] Last Admin: 02/21/20 09:24 Dose: 250 mg Documented by: Enoxaparin Sodium (Lovenox -) 40 mg SQ DAILY [facility] Last Admin: 02/21/20 09:23 Dose: 40 mg Documented by: Ferrous Sulfate (Feosol -) 325 mg PO DAILY@0800 [facility] Last Admin: 02/21/20 08:35 Dose: 325 mg Documented by: Insulin Aspart (Novolog Vial Sliding Scale -) 1 vial SQ [facility]; Protocol Last Admin: 02/21/20 06:33 Dose: 2 units Documented by: Insulin Detemir (Levemir Vial) 10 units SQ AM [facility] Last Admin: 02/21/20 06:32 Dose: 10 units Documented by: Lisinopril (Prinivil) 20 mg PO DAILY [facility] Last Admin: 02/21/20 09:24 Dose: 20 mg Documented by: Melatonin (Melatonin) 10 mg PO [facility] Last Admin: 02/20/20 23:09 Dose: 10 mg Documented by: Sitagliptin Phosphate (Januvia -) 100 mg PO DAILY@0700 [facility] Last Admin: 02/21/20 06:33 Dose: 100 mg Documented by: - Objective Vital Signs: Vital Signs Temperature 98 F 02/21/20 09:00 Pulse Rate 63 02/21/20 09:00 Respiratory Rate 18 02/21/20 09:00 Blood Pressure 99/59 L 02/21/20 09:00 O2 Sat by Pulse Oximetry (%) 97 02/21/20 08:15 Constitutional: Yes: Mild Distress Cardiovascular: Yes: Pulse Irregular Respiratory: Yes: WNL Gastrointestinal: Yes: WNL Labs: CBC, BMP 02/19/20 05:30 02/18/20 06:01 INR, PTT INR 0.89 (0.83-1.09) 02/16/20 16:11 Problem List - Problems (1) Abnormal liver function tests Code(s): R94.5 - ABNORMAL RESULTS OF LIVER FUNCTION STUDIES (2) Acute metabolic encephalopathy Code(s): G93.41 - METABOLIC ENCEPHALOPATHY (3) Anemia Code(s): D64.9 - ANEMIA, UNSPECIFIED (4) Atelectasis of right lung Code(s): J98.11 - ATELECTASIS (5) Fall at home Code(s): W19.XXXA - UNSPECIFIED FALL, INITIAL ENCOUNTER; Y92.009 - [facility] (6) History of cerebrovascular accident (CVA) with residual deficit Code(s): I69.30 - UNSPECIFIED SEQUELAE OF CEREBRAL INFARCTION (7) Microcytic anemia Code(s): D50.9 - IRON DEFICIENCY ANEMIA, UNSPECIFIED Assessment/Plan MONITOR ON TELEMETRY NO ALARMS CARDIOLOGY EVAL PT EVAL LFT WORKUP ON ELEVATION, GI F/U MRA ABDOMEN PENDING DVT PROPHYLAXIS CONTROL HTN/LIPIDEMIA FOR CVA F/U
[2020-02-21] MEDS: ATORVASTATIN CA 40 MG TABLET (FP) PO SCH (21:22)
[2020-02-21] MEDS: MELATONIN 5 MG TABLETS PO SCH (21:22)
[2020-02-21] MEDS ORDERED: MELATONIN 5 MG TABLETS PO SCH (22:00)
[2020-02-22] MEDS: INSULIN (LEVEMIR) 100 UNITS/ML UNITS SQ SCH (06:17)
[2020-02-22] MEDS: INSULIN SLIDING SCALE (NOVOLOG) 1 VIAL SQ SCH ×4 (06:18→21:30)
[2020-02-22] MEDS: ASCORBIC ACID 500 MG TABLET (FP) PO SCH (08:05)
[2020-02-22] MEDS: FERROUS SO4 325 MG TABLET (FP) PO SCH (08:05)
[2020-02-22] MEDS: ENOXAPARIN NA (PORCINE) 40 MG/0.4 ML DISP.SYRIN SQ SCH (09:02)
[2020-02-22] MEDS: ASPIRIN 81 MG CHEWABLE TABLETS PO SCH (09:02)
[2020-02-22] MEDS: CEFUROXIME AXETIL 250 MG TABLET PO SCH ×2 (09:02→21:25)
[2020-02-22] MEDS: LISINOPRIL 20 MG TABLET (FP) PO SCH (09:02)
--- NOTE | 2020-02-22 11:27 | PN ---
Progress Note, Physician Chief Complaint: AWAKE ALERT STILL DIZZY C/O COUGH - Current Medication List Current Medications: Active Medications Ascorbic Acid (Vitamin C -) 500 mg PO DAILY@0800 [facility] Last Admin: 02/22/20 08:05 Dose: 500 mg Documented by: Aspirin (Asa -) 81 mg PO DAILY [facility] Last Admin: 02/22/20 09:02 Dose: 81 mg Documented by: Atorvastatin Calcium (Lipitor -) 40 mg PO [facility] Last Admin: 02/21/20 21:22 Dose: 40 mg Documented by: Cefuroxime Axetil (Ceftin -) 250 mg PO BID [facility] Last Admin: 02/22/20 09:02 Dose: 250 mg Documented by: Enoxaparin Sodium (Lovenox -) 40 mg SQ DAILY [facility] Last Admin: 02/22/20 09:02 Dose: 40 mg Documented by: Ferrous Sulfate (Feosol -) 325 mg PO DAILY@0800 [facility] Last Admin: 02/22/20 08:05 Dose: 325 mg Documented by: Insulin Aspart (Novolog Vial Sliding Scale -) 1 vial SQ [facility]; Protocol Last Admin: 02/22/20 06:18 Dose: 2 units Documented by: Insulin Detemir (Levemir Vial) 10 units SQ AM [facility] Last Admin: 02/22/20 06:17 Dose: 10 units Documented by: Lisinopril (Prinivil) 20 mg PO DAILY [facility] Last Admin: 02/22/20 09:02 Dose: 20 mg Documented by: Melatonin (Melatonin) 10 mg PO [facility] Last Admin: 02/21/20 21:22 Dose: 10 mg Documented by: Sitagliptin Phosphate (Januvia -) 100 mg PO DAILY@0700 [facility] Last Admin: 02/22/20 06:18 Dose: 100 mg Documented by: - Objective Vital Signs: Vital Signs Temperature 97.8 F 02/22/20 06:00 Pulse Rate 68 02/22/20 06:00 Respiratory Rate 20 02/22/20 06:00 Blood Pressure 114/65 02/22/20 06:00 O2 Sat by Pulse Oximetry (%) 97 02/22/20 08:29 Constitutional: Yes: Mild Distress Eyes: Yes: WNL HENT: Yes: WNL Neck: Yes: WNL Cardiovascular: Yes: Regular Rate and Rhythm Respiratory: Yes: WNL Gastrointestinal: Yes: WNL Genitourinary: Yes: WNL Musculoskeletal: Yes: Muscle Weakness Edema: No Peripheral Pulses WNL: Yes Integumentary: Yes: WNL Wound/Incision: Yes: Clean/Dry Neurological: Yes: Pre-Existing Deficit ...Motor Strength: LLE, RLE Psychiatric: Yes: Other Labs: CBC, BMP 02/19/20 05:30 02/18/20 06:01 INR, PTT INR 0.89 (0.83-1.09) 02/16/20 16:11 Problem List - Problems (1) Abnormal liver function tests Code(s): R94.5 - ABNORMAL RESULTS OF LIVER FUNCTION STUDIES (2) Acute metabolic encephalopathy Code(s): G93.41 - METABOLIC ENCEPHALOPATHY (3) Anemia Code(s): D64.9 - ANEMIA, UNSPECIFIED (4) Atelectasis of right lung Code(s): J98.11 - ATELECTASIS (5) Fall at home Code(s): W19.XXXA - UNSPECIFIED FALL, INITIAL ENCOUNTER; [facility] (6) History of cerebrovascular accident (CVA) with residual deficit Code(s): I69.30 - UNSPECIFIED SEQUELAE OF CEREBRAL INFARCTION (7) Microcytic anemia Code(s): D50.9 - IRON DEFICIENCY ANEMIA, UNSPECIFIED Assessment/Plan MONITOR ON TELEMETRY NO ALARMS CARDIOLOGY EVAL PT EVAL LFT WORKUP ON ELEVATION, GI F/U MRA ABDOMEN PENDING DVT PROPHYLAXIS CONTROL HTN/LIPIDEMIA FOR CVA F/U
[2020-02-22 11:52] LABS: HEMATOCRIT 35.8 % (35.4-49); HEMOGLOBIN 11.2 GM/dL (11.7-16.9); MCH 24.2 pg (25.7-33.7); MCHC 31.4 g/dl (32.0-35.9); MEAN CELL VOLUME 77.3 fl (80-96); PLATELET COUNT 192 K/MM3 (134-434); RBC 4.63 M/mm3 (4.00-5.60); RDW 18.3 % (11.9-15.9)
[2020-02-22 12:23] LABS: ALBUMIN 2.9 g/dl (3.4-5.0); BILIRUBIN,TOTAL 0.4 mg/dL (0.2-1); BLOOD UREA NITROGEN 24.8 mg/dL (7-18); CALCIUM 8.3 mg/dL (8.5-10.1); CREATININE 1.1 mg/dL (0.55-1.3); MAGNESIUM 1.7 mg/dL (1.8-2.4); POTASSIUM 4.6 mmol/L (3.5-5.1)
[2020-02-22] MEDS: ATORVASTATIN CA 40 MG TABLET (FP) PO SCH (21:25)
[2020-02-22] MEDS: MELATONIN 5 MG TABLETS PO SCH (21:25)
[2020-02-23] MEDS: INSULIN (LEVEMIR) 100 UNITS/ML UNITS SQ SCH (06:36)
[2020-02-23] MEDS: INSULIN SLIDING SCALE (NOVOLOG) 1 VIAL SQ SCH ×4 (06:37→21:33)
--- NOTE | 2020-02-23 08:34 | DS ---
Physical Examination Vital Signs: Vital Signs Temperature 97.9 F 02/23/20 06:00 Pulse Rate 60 02/23/20 06:00 Respiratory Rate 18 02/23/20 06:00 Blood Pressure 131/70 02/23/20 06:00 O2 Sat by Pulse Oximetry (%) 96 02/22/20 21:00 Cardiovascular: Yes: Regular Rate and Rhythm Respiratory: Yes: Regular, CTA Bilaterally Gastrointestinal: Yes: Normal Bowel Sounds, Soft. No: Tenderness Labs: CBC, BMP 02/22/20 11:20 02/22/20 11:20 Discharge Summary Problems reviewed: Yes Reason For Visit: SYNCOPE Current Active Problems Abnormal liver function tests (Acute) Acute metabolic encephalopathy (Acute) Anemia (Acute) Atelectasis of right lung (Acute) Calcified granuloma of lung (Acute) Encounter for laboratory testing for COVID-19 virus (Acute) Fall at home (Acute) HLD (hyperlipidemia) (Acute) HTN (hypertension) (Acute) History of cerebrovascular accident (CVA) with residual deficit (Acute) Microcytic anemia (Acute) Pleural effusion (Acute) Pleural thickening (Acute) Pneumonia (Acute) Syncope (Acute) Transaminitis (Acute) Hospital Course: - Problems (1) Fall at home Assessment/Plan: neuro on board pt eval Code(s): W19.XXXA - UNSPECIFIED FALL, INITIAL ENCOUNTER; Y92.009 - UNSP PLACE IN [facility]SP [facility]ENCE [facility] (2) HLD (hyperlipidemia) Code(s): E78.5 - HYPERLIPIDEMIA, UNSPECIFIED (3) HTN (hypertension) Assessment/Plan: monitor on current meds Code(s): I10 - ESSENTIAL (PRIMARY) HYPERTENSION (4) History of cerebrovascular accident (CVA) with residual deficit Code(s): I69.30 - UNSPECIFIED SEQUELAE OF CEREBRAL INFARCTION (5) Pleural thickening Assessment/Plan: Pulm consult noted no further work needed Pleural effusion om MRI--Pulm follow up (6) Acute metabolic encephalopathy Assessment/Plan: Improved likely metabolic ? UTI . possible early dementia. monitor MRI NAD Code(s): G93.41 - METABOLIC ENCEPHALOPATHY (7) Transaminitis Assessment/Plan: due to transient hypotension/hypoerfusion. doubt obstructive process - US of RUQ reviewed. LFTS trended down Laboratory Tests 02/16/20 02/17/20 02/18/20 16:11 05:15 06:01 AST 29 494 H 86 H ALT 22 342 H Alkaline Phosphatase 150 H 02/19/20 05:30 AST 38 H ALT 115 H Alkaline Phosphatase 198 H -hepatitis panel -GI consult noted--MRCP--Chronic cholecytitis--gi follow up Code(s): R74.0 - NONSPEC ELEV OF LEVELS OF TRANSAMNS & LACTIC ACID DEHYDRGNSE (8) Anemia Assessment/Plan: per GI Code(s): D64.9 - ANEMIA, UNSPECIFIED dc home after pulm and gi clearance Condition: Stable - Instructions Referrals: Kati Colvin [Primary Care Provider] - 2 Weeks Juan Arellano MD [Staff Physician] - 1 Week - Home Medications Comprehensive Discharge Medication List: Ambulatory Orders Ascorbate Calcium [Vitamin C] 500 mg PO DAILY 05/22/17 Aspirin [ASA -] 81 mg PO DAILY 05/22/17 Insulin Degludec [Tresiba Flextouch U-100] 15 unit SQ DAILY 05/22/17 Lisinopril [Prinivil] 20 mg PO DAILY 05/22/17 Sitagliptin Phosphate [Januvia] 100 mg PO DAILY 05/22/17 Ferrous Sulfate 325 mg PO DAILY 02/17/20 Atorvastatin Ca [Lipitor] 20 mg PO HS #30 tablet 02/23/20 Cefuroxime Axetil [Ceftin -] 250 mg PO BID #10 tablet 02/23/20 Melatonin 10 mg PO HS #60 tab 02/23/20
[2020-02-23] MEDS: LISINOPRIL 20 MG TABLET (FP) PO SCH (09:26)
[2020-02-23] MEDS: ASPIRIN 81 MG CHEWABLE TABLETS PO SCH (09:26)
[2020-02-23] MEDS: FERROUS SO4 325 MG TABLET (FP) PO SCH (09:26)
[2020-02-23] MEDS: ASCORBIC ACID 500 MG TABLET (FP) PO SCH (09:26)
[2020-02-23] MEDS: ENOXAPARIN NA (PORCINE) 40 MG/0.4 ML DISP.SYRIN SQ SCH (09:26)
[2020-02-23] MEDS: CEFUROXIME AXETIL 250 MG TABLET PO SCH ×2 (09:26→21:28)
--- NOTE | 2020-02-23 10:22 | PN ---
Progress Note, Physician History of Present Illness: PULMONARY ALERT,COMFORTABLE,-CP,-SOB - Current Medication List Current Medications: Active Medications Ascorbic Acid (Vitamin C -) 500 mg PO DAILY@0800 [facility] Last Admin: 02/23/20 09:26 Dose: 500 mg Documented by: Aspirin (Asa -) 81 mg PO DAILY [facility] Last Admin: 02/23/20 09:26 Dose: 81 mg Documented by: Atorvastatin Calcium (Lipitor -) 40 mg PO [facility] Last Admin: 02/22/20 21:25 Dose: 40 mg Documented by: Cefuroxime Axetil (Ceftin -) 250 mg PO BID [facility] Last Admin: 02/23/20 09:26 Dose: 250 mg Documented by: Enoxaparin Sodium (Lovenox -) 40 mg SQ DAILY [facility] Last Admin: 02/23/20 09:26 Dose: 40 mg Documented by: Ferrous Sulfate (Feosol -) 325 mg PO DAILY@0800 [facility] Last Admin: 02/23/20 09:26 Dose: 325 mg Documented by: Insulin Aspart (Novolog Vial Sliding Scale -) 1 vial SQ [facility]; Protocol Last Admin: 02/23/20 06:37 Dose: 2 units Documented by: Insulin Detemir (Levemir Vial) 10 units SQ AM [facility] Last Admin: 02/23/20 06:36 Dose: 10 units Documented by: Lisinopril (Prinivil) 20 mg PO DAILY [facility] Last Admin: 02/23/20 09:26 Dose: 20 mg Documented by: Melatonin (Melatonin) 10 mg PO [facility] Last Admin: 02/22/20 21:25 Dose: 10 mg Documented by: Sitagliptin Phosphate (Januvia -) 100 mg PO DAILY@0700 [facility] Last Admin: 02/23/20 06:36 Dose: 100 mg Documented by: - Objective Vital Signs: Vital Signs Temperature 97.9 F 02/23/20 06:00 Pulse Rate 60 02/23/20 06:00 Respiratory Rate 18 02/23/20 06:00 Blood Pressure 131/70 02/23/20 06:00 O2 Sat by Pulse Oximetry (%) 96 02/22/20 21:00 Constitutional: Yes: Well Nourished, Calm Eyes: Yes: WNL HENT: Yes: WNL Neck: Yes: WNL Cardiovascular: Yes: Regular Rate and Rhythm, S1, S2 Respiratory: Yes: CTA Bilaterally Gastrointestinal: Yes: Normal Bowel Sounds, Soft Extremities: Yes: WNL Edema: No Labs: CBC, BMP 02/22/20 11:20 02/22/20 11:20 INR, PTT INR 0.89 (0.83-1.09) 02/16/20 16:11 Assessment/Plan Problem List - Problems (1) Calcified granuloma of lung Code(s): J84.10 - PULMONARY FIBROSIS, UNSPECIFIED (2) Pleural effusion Code(s): J90 - PLEURAL EFFUSION, NOT ELSEWHERE CLASSIFIED (3) Atelectasis of right lung Code(s): J98.11 - ATELECTASIS (4) Fall at home Code(s): W19.XXXA - UNSPECIFIED FALL, INITIAL ENCOUNTER; Y92.009 - [facility] (5) HLD (hyperlipidemia) Code(s): E78.5 - HYPERLIPIDEMIA, UNSPECIFIED (6) HTN (hypertension) Code(s): I10 - ESSENTIAL (PRIMARY) HYPERTENSION (7) History of cerebrovascular accident (CVA) with residual deficit Code(s): I69.30 - UNSPECIFIED SEQUELAE OF CEREBRAL INFARCTION (9) Syncope Code(s): R55 - SYNCOPE AND COLLAPSE Qualifiers: Syncope type: unspecified Qualified Code(s): R55 - Syncope and collapse Chronic changes likely granulomatous disease PLAN: According the the 2017 Fleischner Criteria : No CT follow up is indicated No smoking Fall precautions VTE prophylaxis Aspiration precautions DR TINOCO
[2020-02-23] MEDS: MELATONIN 5 MG TABLETS PO SCH (21:28)
[2020-02-23] MEDS: ATORVASTATIN CA 40 MG TABLET (FP) PO SCH (21:28)
[2020-02-23] MEDS ORDERED: INSULIN (NOVOLOG) ASPART 100 UNITS/ML 10ML VIAL ONE (21:32)
[2020-02-24] MEDS: INSULIN SLIDING SCALE (NOVOLOG) 1 VIAL SQ SCH ×2 (06:39→11:18)
[2020-02-24] MEDS: INSULIN (LEVEMIR) 100 UNITS/ML UNITS SQ SCH (06:39)
--- NOTE | 2020-02-24 07:17 | PN ---
Progress Note, Physician History of Present Illness: pulmonary alert,comfortable,-resp distress - Current Medication List Current Medications: Active Medications Ascorbic Acid (Vitamin C -) 500 mg PO DAILY@0800 [facility] Last Admin: 02/23/20 09:26 Dose: 500 mg Documented by: Aspirin (Asa -) 81 mg PO DAILY [facility] Last Admin: 02/23/20 09:26 Dose: 81 mg Documented by: Atorvastatin Calcium (Lipitor -) 40 mg PO [facility] Last Admin: 02/23/20 21:28 Dose: 40 mg Documented by: Cefuroxime Axetil (Ceftin -) 250 mg PO BID [facility] Last Admin: 02/23/20 21:28 Dose: 250 mg Documented by: Enoxaparin Sodium (Lovenox -) 40 mg SQ DAILY [facility] Last Admin: 02/23/20 09:26 Dose: 40 mg Documented by: Ferrous Sulfate (Feosol -) 325 mg PO DAILY@0800 [facility] Last Admin: 02/23/20 09:26 Dose: 325 mg Documented by: Insulin Aspart (Novolog Vial Sliding Scale -) 1 vial SQ [facility]; Protocol Last Admin: 02/24/20 06:39 Dose: 2 units Documented by: Insulin Detemir (Levemir Vial) 10 units SQ AM [facility] Last Admin: 02/24/20 06:39 Dose: 10 units Documented by: Lisinopril (Prinivil) 20 mg PO DAILY [facility] Last Admin: 02/23/20 09:26 Dose: 20 mg Documented by: Melatonin (Melatonin) 10 mg PO [facility] Last Admin: 02/23/20 21:28 Dose: 10 mg Documented by: Sitagliptin Phosphate (Januvia -) 100 mg PO DAILY@0700 [facility] Last Admin: 02/24/20 06:38 Dose: 100 mg Documented by: - Objective Vital Signs: Vital Signs Temperature 98.0 F 02/24/20 06:00 Pulse Rate 66 02/24/20 06:00 Respiratory Rate 18 02/24/20 06:00 Blood Pressure 126/70 02/24/20 06:00 O2 Sat by Pulse Oximetry (%) 96 02/23/20 21:00 Constitutional: Yes: Well Nourished, Calm Eyes: Yes: WNL HENT: Yes: WNL Neck: Yes: WNL Cardiovascular: Yes: Regular Rate and Rhythm, S1, S2 Respiratory: Yes: Diminished Gastrointestinal: Yes: Normal Bowel Sounds, Soft Extremities: Yes: WNL Edema: No Labs: CBC, BMP 02/22/20 11:20 Assessment/Plan Problem List - Problems (1) Calcified granuloma of lung Code(s): J84.10 - PULMONARY FIBROSIS, UNSPECIFIED (2) Pleural effusion Code(s): J90 - PLEURAL EFFUSION, NOT ELSEWHERE CLASSIFIED (3) Atelectasis of right lung Code(s): J98.11 - ATELECTASIS (4) Fall at home Code(s): W19.XXXA - UNSPECIFIED FALL, INITIAL ENCOUNTER; Y92.009 - UNSP PLACE IN [facility]IVATE[facility]ENCE PLACE (5) HLD (hyperlipidemia) Code(s): E78.5 - HYPERLIPIDEMIA, UNSPECIFIED (6) HTN (hypertension) Code(s): I10 - ESSENTIAL (PRIMARY) HYPERTENSION (7) History of cerebrovascular accident (CVA) with residual deficit Code(s): I69.30 - UNSPECIFIED SEQUELAE OF CEREBRAL INFARCTION (9) Syncope Code(s): R55 - SYNCOPE AND COLLAPSE Qualifiers: Syncope type: unspecified Qualified Code(s): R55 - Syncope and collapse 10 R pleural effusion likely chronic Chronic changes likely granulomatous disease PLAN No smoking Fall precautions VTE prophylaxis Aspiration precautions F/U CHEST CT [address] TINOCO
[2020-02-24] MEDS: ASCORBIC ACID 500 MG TABLET (FP) PO SCH (08:02)
[2020-02-24] MEDS: FERROUS SO4 325 MG TABLET (FP) PO SCH (08:02)
[2020-02-24] MEDS: ASPIRIN 81 MG CHEWABLE TABLETS PO SCH (10:00)
[2020-02-24] MEDS: CEFUROXIME AXETIL 250 MG TABLET PO SCH (10:00)
[2020-02-24] MEDS: LISINOPRIL 20 MG TABLET (FP) PO SCH (10:01)
[2020-02-24] MEDS: ENOXAPARIN NA (PORCINE) 40 MG/0.4 ML DISP.SYRIN SQ SCH (10:01)
[2020-02-24 15:16] VITALS: BP 106/64; PULSE 83; TEMP 98.3
== END 2020-02-24 15:36 | disposition home or self-care (01) | DRG 70 ==
LOC: JER 15:31 → JERBED 20:01 → J4W 23:35
PROVIDERS: ADMIT Internal Medicine; ATTEND Family Medicine
DX: G93.41 Metabolic encephalopathy (principal); J18.9 Pneumonia, unspecified organism; N39.0 Urinary tract infection, site not specified; I69.351 Hemiplegia and hemiparesis following cerebral infarction affecting right dominant side; I47.1 Supraventricular tachycardia; J98.11 Atelectasis; R55 Syncope and collapse; I51.7 Cardiomegaly; I10 Essential (primary) hypertension; E78.5 Hyperlipidemia, unspecified; R74.0 Nonspecific elevation of levels of transaminase and lactic acid dehydrogenase [LDH]; I95.9 Hypotension, unspecified; E11.65 Type 2 diabetes mellitus with hyperglycemia; J92.9 Pleural plaque without asbestos; F03.90 Unspecified dementia, unspecified severity, without behavioral disturbance, psychotic disturbance, mood disturbance, and anxiety; D50.9 Iron deficiency anemia, unspecified
CPT/HCPCS: 36415; 70450-TC; 70551-TC; 71045-TC-FY; 71250-TC; 72125-TC; 72128-TC; 72131-TC; 74181-TC; 76705-TC; 80053; 80061; 80074; 80076; 81003; 82550; 82607; 82746; 82962; 83036; 83721; 83735; 84100; 84443; 84484; 85025; 85027; 85610; 85730; 86850; 86900; 86901; 87040; 87086; 87899; 93005; 93010; 93306-TC; 93880-TC; 97116-GP; 97161-GP; 99285-25; U0003

== ENCOUNTER 2020-11-07 15:13 | Emergency (ER) | payer OTHER ==
[2020-11-07] MEDS ORDERED: ACETAMINOPHEN 500 MG TABLET (FP) PO ONE (15:53)
[2020-11-07] MEDS ORDERED: LIDOCAINE 5% TOPICAL PATCH TP ONE (15:53)
[2020-11-07 16:31] VITALS: BMI 29.2
[2020-11-07 16:40] LABS: BASO % 0.7 % (0-2.0); EOS % 1.2 % (0-4.5); HEMATOCRIT 37.1 % (35.4-49); HEMOGLOBIN 12.5 GM/dL (11.7-16.9); LYMPH % 8.3 % (8-40); MCH 29.1 pg (25.7-33.7); MCHC 33.7 g/dl (32.0-35.9); MEAN CELL VOLUME 86.4 fl (80-96); MEAN PLT VOLUME 10.4 fl (7.5-11.1); MONO % 5.5 % (3.8-10.2); NEUT % 84.3 % (42.8-82.8); PLATELET COUNT 176 K/MM3 (134-434); RDW 15.3 % (11.9-15.9); WHITE BLOOD COUNT 8.6 K/mm3 (4.0-10.0)
[2020-11-07 16:49] LABS: INR 0.98 (0.83-1.09); PROTHROMBIN TIME (PATIENT) 11.9 SEC (9.7-13.0)
[2020-11-07 16:52] LABS: ACTIVATED PTT 30.7 SECONDS (25.2-36.5)
[2020-11-07 17:33] LABS: POTASSIUM 3.6 mmol/L (3.5-5.1)
[2020-11-07 17:35] LABS: CALCIUM 7.7 mg/dL (8.5-10.1)
[2020-11-07 17:36] LABS: ALBUMIN 2.7 g/dl (3.4-5.0); BLOOD UREA NITROGEN 16.8 mg/dL (7-18)
[2020-11-07 17:39] LABS: CREATININE 1.5 mg/dL (0.55-1.3)
[2020-11-07 17:40] LABS: BILIRUBIN,TOTAL 0.6 mg/dL (0.2-1)
[2020-11-07 17:41] LABS: TOT PROT 5.9 g/dl (6.4-8.2)
[2020-11-07] MEDS ORDERED: ACETAMINOPHEN 325 MG TABLET (FP) ONE (18:46)
[2020-11-07] MEDS ORDERED: LIDOCAINE 5% TOPICAL PATCH ONE (18:46)
[2020-11-07 21:31] VITALS: BP 149/86; PULSE 87; TEMP 98.4
[2020-11-07] MEDS ORDERED: LIDOCAINE PATCH REMOVAL MC SCH (22:00)
== END 2020-11-07 21:31 | disposition home or self-care (01) ==
LOC: JER 15:13
DX: T14.8XXA Other injury of unspecified body region, initial encounter (principal)
CPT/HCPCS: 36415; 70450-TC; 72125-TC; 80053; 85025; 85610; 85730; 93005; 93010; 99285-25